=== PATIENT | male | born 1955 | race Caucasian/White ===

== ENCOUNTER 2020-08-26 10:32 | Outpatient (REF) | payer MEDICARE, SELFPAY ==
[2020-08-26 14:43] LABS: Alanine Aminotransferase 37 U/L (0-40); Albumin Level 4.2 g/dL (3.5-5.0); Alkaline Phosphatase 53 U/L (39-117); Anion Gap 14 (12-20); Aspartate Amino Transferase 29 U/L (5-37); Bilirubin Total 0.6 mg/dL (0.0-1.0); Blood Urea Nitrogen 15 mg/dL (9-16); Calcium 8.9 mg/dL (8.4-10.2); Carbon Dioxide 26 mmol/L (22-29); Chloride 104 mmol/L (96-108); Cholesterol 150 mg/dL; Estimated Glomerular Filt Rate > 60; Glucose Fasting 93 mg/dL (60-99); HDL Cholesterol 62 mg/dL; LDL Cholesterol Calculated 77 mg/dl; Potassium 4.4 mmol/L (3.3-5.1); Sodium 140 mmol/L (135-145); Total Protein 6.8 g/dL (6.5-8.0); Triglycerides 59 mg/dL
[2020-08-26 14:52] LABS: Prostate Specific Antigen Scr < 0.05 ng/mL (<0.05-4.0); TSH reflex Free T4 0.51 uIU/mL (0.32-4.0)
== END 2020-08-26 10:33 | disposition home or self-care (01) ==
LOC: HO.HMGCLDS 10:32
PROVIDERS: PCP Nurse Practitioner Family; Visit Provider Nurse Practitioner Family
DX: I21.9 Acute myocardial infarction, unspecified (principal); Z12.5 Encounter for screening for malignant neoplasm of prostate
CPT/HCPCS: 36415; 80053; 80061; 84153; 84443

== ENCOUNTER 2021-07-14 09:58 | Outpatient (REF) | payer MEDICARE, SELFPAY ==
[2021-07-14 11:48] LABS: Hematocrit 44.7 % (42.0-52.0); Mean Corpuscular HGB Conc 31.3 g/dl (31.0-36.0); Mean Corpuscular Hemoglobin 28.9 pg (27.0-33.0); Mean Corpuscular Volume 92.2 fL (80.0-98.0); Mean Platelet Volume 9.1 fL (9.4-12.4); Platelet Count 227 X10*3/uL (160-400); Red Blood Count 4.85 X10*6/uL (4.60-5.80); Red Cell Distribution Width 14.6 % (11.0-16.0)
[2021-07-14 12:21] LABS: Alanine Aminotransferase 23 U/L (0-40); Albumin Level 4.1 g/dL (3.5-5.0); Alkaline Phosphatase 52 U/L (39-117); Anion Gap 11 (12-20); Aspartate Amino Transferase 24 U/L (5-37); Bilirubin Total 0.4 mg/dL (0.0-1.0); Blood Urea Nitrogen 10 mg/dL (9-16); Calcium 9.5 mg/dL (8.4-10.2); Carbon Dioxide 32 mmol/L (22-29); Chloride 102 mmol/L (96-108); Cholesterol 114 mg/dL; Estimated Glomerular Filt Rate > 60; Glucose Fasting 100 mg/dL (60-99); HDL Cholesterol 52 mg/dL; LDL Cholesterol Calculated 52 mg/dl; Potassium 4.5 mmol/L (3.3-5.1); Sodium 140 mmol/L (135-145); Total Protein 6.8 g/dL (6.5-8.0); Triglycerides 53 mg/dL
[2021-07-14 12:45] LABS: Prostate Specific Antigen Scr < 0.05 ng/mL (<0.05-4.0); TSH reflex Free T4 0.61 uIU/mL (0.32-4.0)
[2021-07-14 12:54] LABS: Appearance Urine CLOUDY; Color Urine YELLOW; Glucose Urine UA NEG (NEG); Leukocyte Esterase Urine NEG (NEG); Nitrite Urine NEG (NEG); Urine Blood NEG (NEG); Urine Ketones NEG (NEG); Urine Protein TRACE MG/DL (NEG-TRACE)
== END 2021-07-14 09:59 | disposition home or self-care (01) ==
LOC: HO.LAB 09:58
PROVIDERS: PCP Nurse Practitioner Family; Referring Provider Nurse Practitioner Family; Visit Provider Nurse Practitioner Family
DX: Z01.818 Encounter for other preprocedural examination (principal); Z12.5 Encounter for screening for malignant neoplasm of prostate; K21.9 Gastro-esophageal reflux disease without esophagitis
CPT/HCPCS: 36415; 80053; 80061; 81003; 84153; 84443; 85027; 99202

== ENCOUNTER 2021-10-02 07:32 | Day surgery (SDC) | payer MEDICARE, SELFPAY ==
[2021-08-07 11:59] VITALS: BMI 24.9
--- NOTE | 2021-10-01 08:56 | P.CONAN_ITS ---
Documented by User: Eva Osborn NP 10/01/21 08:56 HPI - Anesthesia Eval Consult details Narrative: 66yo M for Colonoscopy PMFSH Active Problems Active Problems: All Active Problems (Updated 08/07/21 @ 11:52 by Mikki Wells RN) Screening PSA (prostate specific antigen) (Acute) Screening for colon cancer (Acute) Physical exam (Acute) Myocardial infarction (Acute) Past Medical History Medical History CAD (coronary artery disease) GERD (gastroesophageal reflux disease) History of prostate cancer Hyperlipidemia Myocardial infarction On beta oliva at home Surgical History Surgical History History of colonoscopy with polypectomy History of heart artery stent History of prostatectomy Social History Social History Housing: House Are you a primary hospice care consultant to a significant other at home: No Do you presently have visiting nurse or other home services: No Patient Tobacco Use Status: Former Tobacco user Quit Date: 1995 Tobacco use type: Cigarette Years Smoked: quit 1995 e-Cigarette/Vaping Use: Never Used Second Hand Smoke Exposure: No Use of substances other than those prescribed or required for medical reasons: No Substance Use Type Other:: Daily Beer- 5/6 Have you been hit, kicked, punched, or otherwise hurt by someone within the past year? If so, by whom?: No Are you DNR?: No Advance Directives: No Advance Directives Information Provided: No Advance Directives on File: No Recently lost weight without trying: No Eating poorly because of decreased appetite: No Nutrition Risks: No Nutritional Risk service: No Current occupational status: unemployed Meds Allergies Allergy/AdvReac Type Severity Reaction Status Date / Time amoxicillin Allergy Mild Abdominal Verified 08/07/21 12:05 Pain caffeine Allergy Hives Verified 08/07/21 12:05 hornet venom Allergy Anaphylaxis Verified 08/07/21 12:05 Penicillins Allergy Agitated Verified 08/07/21 12:05 Home Medications Medication Instructions Recorded Confirmed Last Taken Type aspirin 81 mg tablet,delayed 81 mg PO DAILY 08/25/20 08/07/21 09/30/21 History release atorvastatin 80 mg tablet 80 mg PO DAILY 08/25/20 08/07/21 Unknown History docusate sodium 100 mg tablet 100 mg PO BID 08/25/20 08/07/21 Unknown History metoprolol tartrate 25 mg tablet 12.5 mg PO BID 08/25/20 08/07/21 Unknown History multivitamin 1 tab PO DAILY 08/25/20 08/07/21 Unknown History psyllium husk 0.4 gram capsule 0.4 g PO DAILY 07/14/21 08/07/21 Unknown History (Fiber (psyllium husk)) Exam Exam Date and Time: October 01, 2021 0856 Height,Weight and Vital Signs: Height 5 ft 9.5 in Weight 77.564 kg Documented by User: Natalia Nobles MD 10/02/21 08:27 [facility] Past Medical History Medical History CAD (coronary artery disease) GERD (gastroesophageal reflux disease) History of prostate cancer Hyperlipidemia Myocardial infarction On beta oliva at home Surgical History Surgical History History of colonoscopy with polypectomy History of heart artery stent History of prostatectomy History of Problems with Anesthesia: No Social History Social History Housing: House Are you a primary hospice care consultant to a significant other at home: No Do you presently have visiting nurse or other home services: No Patient Tobacco Use Status: Former Tobacco user Quit Date: 1995 Tobacco use type: Cigarette Years Smoked: quit 1995 e-Cigarette/Vaping Use: Never Used Second Hand Smoke Exposure: No Use of substances other than those prescribed or required for medical reasons: No Substance Use Type Other:: Daily Beer- 5/6 Have you been hit, kicked, punched, or otherwise hurt by someone within the past year? If so, by whom?: No Are you DNR?: No Advance Directives: No Advance Directives Information Provided: No Advance Directives on File: No Recently lost weight without trying: No Eating poorly because of decreased appetite: No Nutrition Risks: No Nutritional Risk service: No Current occupational status: unemployed Meds Allergies Allergy/AdvReac Type Severity Reaction Status Date / Time amoxicillin Allergy Mild Abdominal Verified 08/07/21 12:05 Pain caffeine Allergy Hives Verified 08/07/21 12:05 hornet venom Allergy Anaphylaxis Verified 08/07/21 12:05 Penicillins Allergy Agitated Verified 08/07/21 12:05 Home Medications Medication Instructions Recorded Confirmed Last Taken Type aspirin 81 mg tablet,delayed 81 mg PO DAILY 08/25/20 08/07/21 09/30/21 History release atorvastatin 80 mg tablet 80 mg PO DAILY 08/25/20 08/07/21 Unknown History docusate sodium 100 mg tablet 100 mg PO BID 08/25/20 08/07/21 Unknown History metoprolol tartrate 25 mg tablet 12.5 mg PO BID 08/25/20 08/07/21 Unknown History multivitamin 1 tab PO DAILY 08/25/20 08/07/21 Unknown History psyllium husk 0.4 gram capsule 0.4 g PO DAILY 07/14/21 08/07/21 Unknown History (Fiber (psyllium husk)) Exam Airway Mallampati Class: II TM Dist: >3cm Neck ROM: Full Loose/Missing/Broken Teeth: No Heart: RRR Lungs: CTA Assessment and Plan Assessment Anesthesia Assessment: Anesthesia Plan Discussed and Chart Reviewed Final Anesthetic Review History of Problems with Anesthesia: No NPO: Yes ASA Class: III Final Preanesthetic Review: Meds/Allgs Chart Reviewed, Consent Obtained/Reviewed and Anes Risks/Benef Reviewed Patient Risk: Intermediate Procedure Risk: Low Anesthetic Plan Anesthetic Plan: MAC: Disposition: Standard PACU
[2021-10-02 07:52] VITALS: BP 121/70; PULSE 75; RESP 16; TEMP 36.2; O2SAT 99
[2021-10-02] MEDS: Lactated Ringers 1,000 ML 50 ML IVCONT (07:58)
--- NOTE | 2021-10-02 08:28 | MHC.SHP ---
Pre-Procedural Eval Section A Date of Service: 10/02/21 Section B Chief Complaint: screening Relevant Family History (Specify if Yes): No Relevant Social History: Alcohol Use Present Medications: see Short Stay Collaborative assessment Medical History: Significant History (CAD (coronary artery disease) GERD (gastroesophageal reflux disease) History of prostate cancer Hyperlipidemia Myocardial infarction On beta oliva at home) History of Previous Operations: Relevant previous surgery/procedure and date(s) (History of colonoscopy with polypectomy History of heart artery stent History of prostatectomy) Allergies: Allergies Allergy/AdvReac Type Severity Reaction Status Date / Time amoxicillin Allergy Mild Abdominal Verified 08/07/21 12:05 Pain caffeine Allergy Hives Verified 08/07/21 12:05 hornet venom Allergy Anaphylaxis Verified 08/07/21 12:05 Penicillins Allergy Agitated Verified 08/07/21 12:05 Review of Systems Sugical H&P ROS: Negative: Constitution, Cardiovascular, Respiratory, Neurological, Psychiatric, Hem-Onc, Allergic/Immunologic, Gastrointestinal, Genitourinary, Musculoskeletal, Integumentary, Endocrine and Eyes/Ears/Nose/Throat Exam Surgical H&P Exam: Normal: HEENT, Normal: Heart, Normal: Lungs, Normal: Extremities, Normal: Abdomen, Normal: Skin and Normal: Neurological Plan Diagnosis/Plan: Unchanged I have reviewed the history and physical and performed a pertinent physical examination on my patient. No changes have occurred unless specified.
--- NOTE | 2021-10-02 08:29 | PM.OP ---
Brief Operative Note Date of Service: 10/02/21 Pre-op diagnosis: screening, hx of polyps Post-op diagnosis: same Procedure: see op note Surgeon: Misti Rock MD Anesthesia: MAC Was an Director Community Organization used for this Procedure?: No Estimated blood loss (mL): 0 Condition: stable Disposition: PACU
--- NOTE | 2021-10-02 08:30 | W.PM.OPN ---
Operative Note Operative Note Date of Service: 10/02/21 Narrative: Operative Information Procedure Description: Colonoscopy Indication: screening, hx of polyps Anesthesia: MAC COLONOSCOPY Instrument: Olympus variable stiffness pediatric scope 190L Colonoscopy Monitoring: Vital signs and clinical assessment, continuous EKG monitoring, Pulse oximetry, Carbon Dioxide monitoring and blood pressure monitoring were done throughout the procedure. Colon withdrawal time was 13 minutes. Procedure: The patient was placed in the left lateral decubitis position and pre-procedure medications were administered. After a digital rectal examination of the ano-rectum, the video colonoscope was inserted into the rectum and advanced through the colon to the cecum/TI. The colonoscope was slowly withdrawn in a retrograde panoramic fashion and the colon mucosa was carefully examined including a retroflexed view of the rectum. Findings and interventions are described below. Procedure Difficulty: easy Findings: Terminal Ileum-not intubated Cecum:normal Ascending Colon: x1 sessile polyp 4-5 mm removed with cold forceps, x 2 sessile polyps 8-10 mm removed with cold snare Transverse Colon -normal, few diverticula seen Descending Colon:normal Sigmoid Colon: severe diverticulosis with mucosal hypertrophy and luminal narrowing Rectum: Retroflexion with moderate sized internal hemorrhoids, grade I Anorectum - normal Colon preparation: [place] Bowel Preparation Scale Right colon; 2 Transverse colon: 2 Left colon; 2 (0 = Unprepared colon segment with mucosa not seen due to solid stool that cannot be cleared. 1 = Portion of mucosa of the colon segment seen, but other areas of the colon segment not well seen due to staining, residual stool and/or opaque liquid. 2 = Minor amount of residual staining, small fragments of stool and/or opaque liquid, but mucosa of colon segment seen well. 3 = Entire mucosa of colon segment seen well with no residual staining, small fragments of stool or opaque liquid) Impression and Post Procedure Diagnosis: polyps internal hemorrhoids diverticular disease Plan: High fiber diet leaflet Avoid straining at stool, epsom salts and sitz bath, anusol supps or cream Repeat Colonoscopy in 3-4 years due to polyps or earlier if clinically indicated Above findings were reviewed with the patient and relevant handouts were provided if indicated.
[2021-10-02 09:05] VITALS: BP 91/51; PULSE 65; RESP 14; TEMP 36.6; O2SAT 98
[2021-10-02 09:20] VITALS: BP 109/64; PULSE 66; RESP 18; TEMP 36.1; O2SAT 99
== END 2021-10-02 09:57 | disposition home or self-care (01) ==
PROVIDERS: PCP Nurse Practitioner Family; Visit Provider Internal Medicine Gastroenterology
PROC: 0DJD8ZZ Inspection of Lower Intestinal Tract, Via Natural or Artificial Opening Endoscopic (ICD-10-PCS; CPT 45378; principal; 2021-10-02 08:30)
DX: Z12.11 Encounter for screening for malignant neoplasm of colon (principal); Z86.010 Personal history of colon polyps; D12.2 Benign neoplasm of ascending colon; K57.30 Diverticulosis of large intestine without perforation or abscess without bleeding; K64.0 First degree hemorrhoids; K21.9 Gastro-esophageal reflux disease without esophagitis; I25.10 Atherosclerotic heart disease of native coronary artery without angina pectoris; I25.2 Old myocardial infarction; Z98.61 Coronary angioplasty status; E78.5 Hyperlipidemia, unspecified; Z79.82 Long term (current) use of aspirin; Z79.899 Other long term (current) drug therapy; Z88.0 Allergy status to penicillin; Z85.46 Personal history of malignant neoplasm of prostate; Z87.891 Personal history of nicotine dependence
CPT/HCPCS: 45385; 45380; 88305

== ENCOUNTER → 2021-11-03 12:16 | Outpatient (BNVA) | payer MEDICARE, SELFPAY | PROVIDERS: PCP Nurse Practitioner Family; Visit Provider Nurse Practitioner Family | DX: D12.2 Benign neoplasm of ascending colon (principal); K57.30 Diverticulosis of large intestine without perforation or abscess without bleeding; Z98.890 Other specified postprocedural states | CPT/HCPCS: 99212 ==

== ENCOUNTER 2022-04-30 11:52 | Outpatient (REF) | payer MEDICARE, SELFPAY ==
[2022-04-30 14:11] LABS: MANUAL DIFF FLAG NO
[2022-04-30 14:18] LABS: Basophils Absolute Auto 0.1 X10*3/uL (0.0-0.2); Basophils Percent Auto 0.5 % (0-2); Eosinophils Absolute Auto 0.2 X10*3/uL (0.0-0.4); Eosinophils Percent Auto 1.5 % (0-4); Hematocrit 45.5 % (42.0-52.0); Hemoglobin 14.6 g/dl (14.0-18.0); Imm Gran Abs Auto 0.03 X10*3/uL (0.00-0.03); Imm Gran Pct Auto 0.3 % (0.0-0.4); Lymphocytes Absolute Auto 3.5 X10*3/uL (1.2-4.9); Mean Corpuscular HGB Conc 32.1 g/dl (31.0-36.0); Mean Corpuscular Hemoglobin 28.9 pg (27.0-33.0); Mean Corpuscular Volume 90.1 fL (80.0-98.0); Mean Platelet Volume 9.4 fL (9.4-12.4); Monocytes Absolute Auto 0.7 X10*3/uL (0.1-1.2); Monocytes Percent Auto 5.9 % (2-11); Neutrophils Absolute Auto 6.6 x10*3/uL (2.0-8.3); Neutrophils Percent Auto 59.8 % (45-73); Platelet Count 245 X10*3/uL (160-400); Red Blood Count 5.05 X10*6/uL (4.60-5.80); Red Cell Distribution Width 14.7 % (11.0-16.0)
[2022-04-30 15:08] LABS: Alanine Aminotransferase 21 U/L (0-40); Albumin Level 4.2 g/dL (3.5-5.0); Alkaline Phosphatase 61 U/L (39-117); Anion Gap 13 (12-20); Aspartate Amino Transferase 24 U/L (5-37); Bilirubin Total 0.5 mg/dL (0.0-1.0); Blood Urea Nitrogen 11 mg/dL (9-16); Calcium 9.6 mg/dL (8.4-10.2); Carbon Dioxide 28 mmol/L (22-29); Chloride 104 mmol/L (96-108); Cholesterol 133 mg/dL; Estimated Glomerular Filt Rate > 60; Glucose Fasting 90 mg/dL (60-99); HDL Cholesterol 56 mg/dL; LDL Cholesterol Calculated 65 mg/dl; Prostate Specific Antigen Scr < 0.10 ng/mL (<0.05-4.0); Sodium 140 mmol/L (135-145); TSH reflex Free T4 0.66 uIU/mL (0.32-4.0); Total Protein 6.8 g/dL (6.5-8.0); Triglycerides 62 mg/dL
[2022-04-30 16:27] LABS: Appearance Urine Clear; Color Urine Yellow; Glucose Urine UA Negative (Negative); Leukocyte Esterase Urine Negative (Negative); Nitrite Urine Negative (Negative); Specific Gravity - Urine 1.015 (1.005-1.025); Urine Blood Negative (Negative); Urine Ketones Negative (Negative); Urine Protein Negative (Neg-Trace)
== END 2022-04-30 11:53 | disposition home or self-care (01) ==
LOC: HO.HMGCLDS 11:52
PROVIDERS: PCP Nurse Practitioner Family; Visit Provider Nurse Practitioner Family
DX: Z00.00 Encounter for general adult medical examination without abnormal findings (principal); Z12.5 Encounter for screening for malignant neoplasm of prostate
CPT/HCPCS: 36415; 80053; 80061; 81003; 84153; 84443; 85025

== ENCOUNTER 2022-07-26 15:14 | Outpatient (REF) | payer MEDICARE, SELFPAY ==
[2022-07-26 16:18] LABS: MANUAL DIFF FLAG NO
[2022-07-26 16:21] LABS: Basophils Absolute Auto 0.1 X10*3/uL (0.0-0.2); Basophils Percent Auto 0.5 % (0-2); Eosinophils Absolute Auto 0.1 X10*3/uL (0.0-0.4); Hematocrit 45.8 % (42.0-52.0); Hemoglobin 14.8 g/dl (14.0-18.0); Imm Gran Abs Auto 0.04 X10*3/uL (0.00-0.03); Imm Gran Pct Auto 0.3 % (0.0-0.4); Lymphocytes Absolute Auto 3.3 X10*3/uL (1.2-4.9); Lymphocytes Percent Auto 24.9 % (20-40); Mean Corpuscular HGB Conc 32.3 g/dl (31.0-36.0); Mean Corpuscular Hemoglobin 29.2 pg (27.0-33.0); Mean Corpuscular Volume 90.5 fL (80.0-98.0); Mean Platelet Volume 8.9 fL (9.4-12.4); Monocytes Absolute Auto 0.6 X10*3/uL (0.1-1.2); Monocytes Percent Auto 4.9 % (2-11); Neutrophils Percent Auto 68.4 % (45-73); Platelet Count 222 X10*3/uL (160-400); Red Blood Count 5.06 X10*6/uL (4.60-5.80); Red Cell Distribution Width 14.6 % (11.0-16.0); White Blood Count 13.1 X10*3/uL (4.8-10.8)
[2022-07-26 17:40] LABS: Alanine Aminotransferase 21 U/L (0-40); Albumin Level 4.2 g/dL (3.5-5.0); Alkaline Phosphatase 58 U/L (39-117); Anion Gap 13 (12-20); Aspartate Amino Transferase 22 U/L (5-37); Bilirubin Total 0.4 mg/dL (0.0-1.0); Blood Urea Nitrogen 12 mg/dL (9-16); Calcium 9.3 mg/dL (8.4-10.2); Carbon Dioxide 29 mmol/L (22-29); Chloride 103 mmol/L (96-108); Estimated Glomerular Filt Rate > 60; Glucose Random 72 mg/dL (60-115); Potassium 4.6 mmol/L (3.3-5.1); Sodium 140 mmol/L (135-145); Total Protein 6.7 g/dL (6.5-8.0)
[2022-07-26 18:01] LABS: Prostate Specific Antigen < 0.10 ng/mL (<0.05-4.0)
== END 2022-07-26 15:15 | disposition home or self-care (01) ==
LOC: HO.HMGCLDS 15:14
PROVIDERS: PCP Nurse Practitioner Family; Visit Provider Nurse Practitioner Family
DX: Z12.5 Encounter for screening for malignant neoplasm of prostate (principal); D72.829 Elevated white blood cell count, unspecified; R97.20 Elevated prostate specific antigen [PSA]
CPT/HCPCS: 36415; 80053; 84153; 85025

== ENCOUNTER 2022-08-27 13:58 | Outpatient (REF) | payer MEDICARE, SELFPAY ==
[2022-08-27 16:26] LABS: MANUAL DIFF FLAG NO
[2022-08-27 16:36] LABS: Basophils Absolute Auto 0.1 X10*3/uL (0.0-0.2); Basophils Percent Auto 0.5 % (0-2); Eosinophils Absolute Auto 0.2 X10*3/uL (0.0-0.4); Eosinophils Percent Auto 1.3 % (0-4); Hematocrit 43.8 % (42.0-52.0); Imm Gran Abs Auto 0.04 X10*3/uL (0.00-0.03); Imm Gran Pct Auto 0.3 % (0.0-0.4); Immature Retic Fraction 14.7 % (2.3-13.4); Lymphocytes Absolute Auto 4.1 X10*3/uL (1.2-4.9); Lymphocytes Percent Auto 34.8 % (20-40); Mean Corpuscular Hemoglobin 29.1 pg (27.0-33.0); Mean Corpuscular Volume 91.1 fL (80.0-98.0); Mean Platelet Volume 9.4 fL (9.4-12.4); Monocytes Absolute Auto 0.8 X10*3/uL (0.1-1.2); Monocytes Percent Auto 6.5 % (2-11); Neutrophils Absolute Auto 6.6 x10*3/uL (2.0-8.3); Neutrophils Percent Auto 56.6 % (45-73); Platelet Count 224 X10*3/uL (160-400); RET ABN SCTR 1; Red Blood Count 4.81 X10*6/uL (4.60-5.80); Retic HGB Equivalent 33.5 pg (30.0-35.0); Reticulocytes Absolute 0.081 X10*6/uL (0.026-0.095); White Blood Count 11.7 X10*3/uL (4.8-10.8)
[2022-08-27 17:16] LABS: Reticulocyte Percent 1.7 % (0.5-1.8)
== END 2022-08-27 13:59 | disposition home or self-care (01) ==
LOC: HO.HMGCLDS 13:58
PROVIDERS: PCP Nurse Practitioner Family; Visit Provider Nurse Practitioner Family
DX: D72.829 Elevated white blood cell count, unspecified (principal)
CPT/HCPCS: 36415; 85025; 85045

== ENCOUNTER 2022-09-22 14:31 | Outpatient (REF) | payer MEDICARE, SELFPAY ==
[2022-09-22 16:56] LABS: MANUAL DIFF FLAG NO
[2022-09-22 17:30] LABS: Basophils Absolute Auto 0.1 X10*3/uL (0.0-0.2); Basophils Percent Auto 0.5 % (0-2); Eosinophils Absolute Auto 0.1 X10*3/uL (0.0-0.4); Eosinophils Percent Auto 0.7 % (0-4); Hematocrit 45.3 % (42.0-52.0); Hemoglobin 14.7 g/dl (14.0-18.0); Imm Gran Abs Auto 0.03 X10*3/uL (0.00-0.03); Imm Gran Pct Auto 0.3 % (0.0-0.4); Immature Retic Fraction 14.6 % (2.3-13.4); Lymphocytes Absolute Auto 2.4 X10*3/uL (1.2-4.9); Lymphocytes Percent Auto 23.1 % (20-40); Mean Corpuscular HGB Conc 32.5 g/dl (31.0-36.0); Mean Corpuscular Hemoglobin 28.5 pg (27.0-33.0); Mean Corpuscular Volume 87.8 fL (80.0-98.0); Mean Platelet Volume 9.2 fL (9.4-12.4); Monocytes Absolute Auto 0.6 X10*3/uL (0.1-1.2); Monocytes Percent Auto 5.4 % (2-11); Neutrophils Absolute Auto 7.4 x10*3/uL (2.0-8.3); Platelet Count 248 X10*3/uL (160-400); Red Blood Count 5.16 X10*6/uL (4.60-5.80); Red Cell Distribution Width 14.4 % (11.0-16.0); Retic HGB Equivalent 33.4 pg (30.0-35.0); Reticulocyte Percent 1.4 % (0.5-1.8); Reticulocytes Absolute 0.074 X10*6/uL (0.026-0.095); White Blood Count 10.5 X10*3/uL (4.8-10.8)
== END 2022-09-22 14:32 | disposition home or self-care (01) ==
LOC: HO.HMGCLDS 14:31
PROVIDERS: PCP Nurse Practitioner Family; Visit Provider Nurse Practitioner Family
DX: D72.829 Elevated white blood cell count, unspecified (principal)
CPT/HCPCS: 36415; 85025; 85045

== ENCOUNTER 2023-05-07 10:19 | Outpatient (REF) | payer MEDICARE, SELFPAY ==
[2023-05-07 11:06] LABS: MANUAL DIFF FLAG NO
[2023-05-07 11:10] LABS: Appearance Urine Clear; Color Urine Yellow; Glucose Urine UA Negative (Negative); Leukocyte Esterase Urine Negative (Negative); Nitrite Urine Negative (Negative); Urine Blood Negative (Negative); Urine Ketones Negative (Negative); Urine Protein Negative (Neg-Trace)
[2023-05-07 11:18] LABS: Basophils Absolute Auto 0.1 X10*3/uL (0.0-0.2); Basophils Percent Auto 0.5 % (0-2); Eosinophils Absolute Auto 0.2 X10*3/uL (0.0-0.4); Eosinophils Percent Auto 2.1 % (0-4); Hematocrit 45.6 % (42.0-52.0); Hemoglobin 14.5 g/dl (14.0-18.0); Imm Gran Abs Auto 0.03 X10*3/uL (0.00-0.03); Imm Gran Pct Auto 0.3 % (0.0-0.4); Immature Retic Fraction 14.5 % (2.3-13.4); Lymphocytes Absolute Auto 3.1 X10*3/uL (1.2-4.9); Lymphocytes Percent Auto 33.3 % (20-40); Mean Corpuscular HGB Conc 31.8 g/dl (31.0-36.0); Mean Corpuscular Hemoglobin 28.8 pg (27.0-33.0); Mean Corpuscular Volume 90.7 fL (80.0-98.0); Mean Platelet Volume 9.1 fL (9.4-12.4); Monocytes Absolute Auto 0.7 X10*3/uL (0.1-1.2); Monocytes Percent Auto 7.3 % (2-11); Neutrophils Absolute Auto 5.3 x10*3/uL (2.0-8.3); Neutrophils Percent Auto 56.5 % (45-73); Platelet Count 213 X10*3/uL (160-400); Red Blood Count 5.03 X10*6/uL (4.60-5.80); Retic HGB Equivalent 33.7 pg (30.0-35.0); Reticulocyte Percent 1.6 % (0.5-1.8); Reticulocytes Absolute 0.083 X10*6/uL (0.026-0.095); White Blood Count 9.4 X10*3/uL (4.8-10.8)
[2023-05-07 11:50] LABS: Alanine Aminotransferase 30 U/L (0-40); Albumin Level 4.1 g/dL (3.5-5.0); Alkaline Phosphatase 58 U/L (39-117); Anion Gap 11 (12-20); Aspartate Amino Transferase 25 U/L (5-37); Bilirubin Total 0.5 mg/dL (0.0-1.0); Blood Urea Nitrogen 15 mg/dL (9-16); Calcium 9.2 mg/dL (8.4-10.2); Carbon Dioxide 29 mmol/L (22-29); Chloride 103 mmol/L (96-108); Cholesterol 141 mg/dL (<200); Estimated Glomerular Filt Rate > 60; Glucose Fasting 100 mg/dL (60-99); HDL Cholesterol 59 mg/dL (>40); LDL Cholesterol Calculated 63 mg/dL (<100); Potassium 4.3 mmol/L (3.3-5.1); Sodium 139 mmol/L (135-145); Total Protein 6.9 g/dL (6.5-8.0); Triglycerides 99 mg/dL (<150)
== END 2023-05-07 10:20 | disposition home or self-care (01) ==
LOC: HO.HMGCLDS 10:19
PROVIDERS: PCP Nurse Practitioner Family; Visit Provider Nurse Practitioner Family
DX: D72.829 Elevated white blood cell count, unspecified (principal); I25.10 Atherosclerotic heart disease of native coronary artery without angina pectoris
CPT/HCPCS: 36415; 80053; 80061; 81003; 85025; 85045

== ENCOUNTER 2023-05-12 10:48 | Outpatient (AMB) | payer MEDICARE, SELFPAY ==
--- NOTE | 2023-05-12 11:03 | MHC.PC.OV ---
Vital Signs 05/12/23 11:05 Height 5 ft 9.5 in Weight 182 lb BMI 26.5 BP 118/85 Blood Pressure Location Lt brachial Position Sitting Pulse 69 Pulse Source Pulse Oximeter Pulse Oximetry (%) 97 Oxygen Delivery Method Room Air Intake Visit Reasons: Annual PE Intake Note: Patient here for physical exam. Patient would like to talk about circulation in toes and knee pain. Last colonoscopy: [facility] [place]-September 2021 Allergies amoxicillin Allergy (Mild, Verified 11/02/22 11:40) Abdominal Pain caffeine Allergy (Verified 11/02/22 11:40) Hives hornet venom Allergy (Verified 11/02/22 11:40) Anaphylaxis Penicillins Allergy (Verified 11/02/22 11:40) Agitated Medication List - Last Reconciled 05/12/23 by YAMILE Ingram aspirin 81 mg PO DAILY atorvastatin 80 mg PO DAILY cholecalciferol (vitamin D3) 25 mcg PO DAILY metoprolol tartrate 12.5 mg PO BID multivitamin 1 tab PO DAILY Tobacco use date assessed: 05/12/23 Fall risk assessment: No Falls in past year Last assessed Fall Risk: 05/12/23 Dental Screening Dental Screen Date: 05/12/23 Did you have a dental visit in the last 12 months?: Yes Did you have a dental problem in the last 6 months where you did not have access to dental care?: No Was dental information given to patient?: Patient has dentist HPI Annual PE HPI Details Pt is here for a PE. Labs were already performed. Colon screen is up to date. Pt's last PSA was <0.10 which was increased from <0.05. He does have a hx of prostatectomy. Will repeat PSA. Will also reach out to pt's urologist. Denies dribbling with urination, weak stream, and frequent nocturia. Pt follows up with cardiology. [facility] Medical History Tubular adenoma On beta oliva at home History of prostate cancer GERD (gastroesophageal reflux disease) Hyperlipidemia CAD (coronary artery disease) Myocardial infarction Surgical History History of colonoscopy with polypectomy History of prostatectomy History of heart artery stent Social History Housing: House Are you a primary companion caregiver to a significant other at home: No Do you presently have visiting nurse or other home services: No Patient Tobacco Use Status: Former Tobacco user Quit Date: 1995 Tobacco use type: Cigarette Years Smoked: quit 1995 e-Cigarette/Vaping Use: Never Used Second Hand Smoke Exposure: No service: No Current occupational status: unemployed Cognitive needs: No Hearing needs: No Vision needs: No Questionnaire PHQ-9 Over the last 2 weeks, how often have you been bothered by any of the following problems? 1. Little interest or pleasure in doing things: not at all 2. Feeling down, depressed, or hopeless: not at all 3. Trouble falling or staying asleep, or sleeping too much: not at all 4. Feeling tired or having little energy: not at all 5. Poor appetite or overeating: not at all 6. Feeling bad about yourself - or that you are a failure or have let yourself or your family down: not at all 7. Trouble concentrating on things, such as reading the newspaper or watching television: not at all 8. Moving or speaking so slowly that other people could have noticed. Or the opposite - being so fidgety or restless that you have been moving around a lot more than usual: not at all 9. Thoughts that you would be better off or of hurting yourself in some way: not at all Total score: 0 Depression Screening Interpretation: Negative Depression Screening Done: Yes 58884 - PHQ-9 Billing: Yes Source: Developed by Drs. Mumtaz Lyman, Shaniqua Mireles, Luis Morales and colleagues, with an educational cindy from [employer]. Thrive Questionnaire Date Thrive assessed: 05/12/23 I am a: Patient What is your living situation today?: I have a steady place to live Within the past 12 months, did the food you bought not last and you didn't have the money to get more?: Never true Within the past 12 months, did you worry whether your food would run out before you got money to buy more?: Never true Do you have trouble paying for medicines?: No Do you have trouble getting transportation to medical appointments?: No Do you have trouble paying your heating and electricity bill?: No Do you have trouble taking care of your child, family member or friend?: No Do you have trouble with day-to-day activities such as bathing, preparing meals, shopping, managing finances, etc.?: No Are you currently unemployed and looking for a job?: No Are you interested in more education?: No AUDIT C Alcohol Use Questionnaire (AUDIT-C) 1. How often do you have a drink containing alcohol?: 4 or more times a week 2. How many drinks containing alcohol do you have on a typical day when you are drinking?: 7 to 9 3. How often do you have six or more drinks on one occasion?: Daily or almost daily Total Score: 11 Score Reviewed/Action Taken: Yes ELSA-7 AMB Questionnaire ELSA-7 Date ELSA - 7 assessed: 05/12/23 Feeling nervous, anxious, or on edge: 0 = Not at all Not being able to stop or control worryin = Not at all Worrying too much about different things: 0 = Not at all Trouble relaxin = Not at all Being so restless that it is hard to sit still: 0 = Not at all Becoming easily annoyed or irritable: 0 = Not at all Feeling afraid as if something awful might happen: 0 = Not at all Total ELSA-7 score (0-4 normal; 5-9 mild; 10-14 moderate; 15-21 severe): 0 Source: Developed by Drs. Mumtaz Lyman, Shaniqua Mireles, Luis Morales and colleagues, with an educational cindy from [employer]. ELSA-7 Assessment Billing ELSA-7 Assessment Tool: ELSA-7 Assessment 41441 Review of Systems Const Denies chills and Denies fever(s) Eyes Denies blurry vision ENT Denies vertigo, Denies dizziness and Denies sore throat Card Denies chest pain at rest, Denies chest pain with activity, Denies diaphoresis, Denies dyspnea and Denies dyspnea on exertion Resp Denies cough, Denies dyspnea, Denies dyspnea on exertion and Denies wheezing GI Denies abdominal pain, Denies melena, Denies hematochezia, Denies constipation, Denies diarrhea and Denies loose stools Denies hematuria Musc Denies numbness and Denies tingling Skin/Breast Denies lesions Neuro Denies vertigo, Denies dizziness, Denies numbness and Denies tingling Psych Denies anxiety, Denies depression, Denies homicidal ideation, Denies suicidal ideation and Denies other (substance abuse) Aller/Immun Denies wheezing Physical exam (Primary Care) Vital Signs: Last Vital Signs Pulse 69 05/12/23 11:05 BP 118/85 05/12/23 11:05 Pulse Ox 97 05/12/23 11:05 Oxygen Delivery Method Room Air 05/12/23 11:05 BMI result Body Mass Index 26.5 Tobacco/Smoking Status: Tobacco use Status Tobacco use date assessed 05/12/23 05/12/23 11:11 Patient Tobacco Use Status Former Tobacco user 05/12/23 11:05 Tobacco use type Cigarette 05/12/23 11:05 e-Cigarette/Vaping Use Never Used 05/12/23 11:05 PHQ-9: PHQ-9 Score PHQ-9: Total score 0 05/12/23 13:14 Depression Screening Interpretation: Negative Thrive Assessment: Date of Thrive Assessment Date Thrive assessed 05/12/23 05/12/23 11:16 Const General: cooperative Nutritional Appearance: well nourished Orientation/consciousness: patient oriented x3 HENMT Head: Yes normal to inspection, Yes normocephalic and Yes atraumatic Ears: TM's normal bilaterally Eyes General: appearance normal, both eyes and all related structures Alignment and Position: alignment normal and position normal Neck Neck: Yes normal visual inspection and Yes no lymphadenopathy Thyroid: Thyroid normal Resp Effort & Inspection: normal respiratory effort Auscultation: clear to auscultation bilaterally Cardio Rate: regular rate Rhythm: regular rhythm Heart sounds: S1 normal heart sound present, S2 normal heart sound present and no murmurs GI Palpation (GI): Soft to palpation and nontender Auscultation: normal bowel sounds Male General Exam: Yes normal external exam Penis: normal penis Scrotum: scrotum normal, testes descended bilaterally and no inguinal hernias Testes: no testicular mass Skin Rashes: no rashes Neuro General: patient oriented x3, moves all extremities, no focal motor deficits and deep tendon reflexes 2+ bilaterally Romberg Test: Negative Psych Appearance: grossly normal Mental Status: mental status grossly normal Speech and movement: Normal speech and movement present Affect: normal affect Attitude: cooperative Thought process: Normal thought process present Thought content: Normal thought content present Insight: Good insight present (Psych) Judgement: Good judgement present (Psych) Assessment and Plan Assessment & Plan (1) Rising PSA level: Code(s): R97.20 - Elevated prostate specific antigen [PSA] Plan: will contact his urologist, repeating psa (2) Physical exam: Code(s): Z00.00 - Encounter for general adult medical examination without abnormal findings Orders: Orders PSA,Total (Free>4and<10) Today R97.20 - Elevated prostate specific antigen [PSA] Coding Level of Care Code Est Pt Prev Care >65y(44328) Diagnoses Rising PSA level R97.20 Physical exam Z00.00 Additional Codes ELSA-7 Assessment Billing - ELSA-7 Assessment Tool: ELSA-7 Assessment 36538 ([id number])
[2023-05-12 11:05] VITALS: BP 118/85; PULSE 69; O2SAT 97; BMI 26.5
== END 2023-05-12 11:55 | disposition home or self-care (01) ==
PROVIDERS: PCP Nurse Practitioner Family; Visit Provider Nurse Practitioner Family
DX: R97.20 Elevated prostate specific antigen [PSA] (principal); Z00.00 Encounter for general adult medical examination without abnormal findings
CPT/HCPCS: 99397

== ENCOUNTER 2023-05-14 12:22 | Outpatient (REF) | payer MEDICARE, SELFPAY | END 2023-05-14 12:23 | disposition home or self-care (01) | LOC: HO.HMGCLDS 12:22 | PROVIDERS: PCP Nurse Practitioner Family; Visit Provider Nurse Practitioner Family | DX: R97.20 Elevated prostate specific antigen [PSA] (principal); Z12.5 Encounter for screening for malignant neoplasm of prostate | CPT/HCPCS: 36415; 84153 ==

== ENCOUNTER 2023-11-14 14:25 | Outpatient (AMB) | payer MEDICARE, SELFPAY ==
[2023-11-14 14:28] VITALS: BP 124/82; PULSE 74; O2SAT 96; BMI 25.9
--- NOTE | 2023-11-14 14:28 | MHC.PC.OV ---
Vital Signs 11/14/23 14:28 Height 5 ft 9.5 in Weight 178 lb 4 oz BMI 25.9 BP 124/82 Blood Pressure Location Lt brachial Position Sitting Pulse 74 Pulse Source Pulse Oximeter Pulse Oximetry (%) 96 Oxygen Delivery Method Room Air Intake Visit Reasons: 6 month Follow up Allergies amoxicillin Allergy (Mild, Verified 11/14/23 14:35) Abdominal Pain caffeine Allergy (Verified 11/14/23 14:35) Hives hornet venom Allergy (Verified 11/14/23 14:35) Anaphylaxis Penicillins Allergy (Verified 11/14/23 14:35) Agitated Tobacco use date assessed: 11/14/23 Fall risk assessment: No Falls in past year Last assessed Fall Risk: 11/14/23 Dental Screening Dental Screen Date: 11/14/23 Did you have a dental visit in the last 12 months?: Yes Did you have a dental problem in the last 6 months where you did not have access to dental care?: No Was dental information given to patient?: Patient has dentist HPI 6 month Follow up HPI Details Pt has a hx of CAD. He is seeing cardiology. He is also taking aspirin 81mg and atorvastatin 80mg. Denies chest pain, shortness of breath, and dizziness. Pt is following up with urology due to micro hematuria and hx of prostate cancer. Pt also follows up with cardiology [facility] Medical History Raynauds disease Tubular adenoma On beta oliva at home History of prostate cancer GERD (gastroesophageal reflux disease) Hyperlipidemia CAD (coronary artery disease) Myocardial infarction Surgical History History of colonoscopy with polypectomy History of prostatectomy History of heart artery stent Social History Housing: House Are you a primary assistant child care teacher to a significant other at home: No Do you presently have visiting nurse or other home services: No Patient Tobacco Use Status: Former Tobacco user Tobacco use type: Cigarette Years Smoked: quit 1995 e-Cigarette/Vaping Use: Never Used Second Hand Smoke Exposure: No service: No Current occupational status: unemployed Cognitive needs: No Hearing needs: No Vision needs: No Questionnaire Thrive Questionnaire Date Thrive assessed: 05/12/23 AUDIT C Alcohol Use Questionnaire (AUDIT-C) 1. How often do you have a drink containing alcohol?: 4 or more times a week 2. How many drinks containing alcohol do you have on a typical day when you are drinking?: 7 to 9 3. How often do you have six or more drinks on one occasion?: Daily or almost daily Total Score: 11 Score Reviewed/Action Taken: Yes ELSA-7 AMB Questionnaire ELSA-7 Date ELSA - 7 assessed: 05/12/23 Source: Developed by Drs. Mumtaz Lyman, Shaniqua Mireles, Luis Morales and colleagues, with an educational cindy from [employer]. Review of Systems Const Reports as per HPI Physical exam (Primary Care) Vital Signs: Last Vital Signs Pulse 74 11/14/23 14:28 BP 124/82 11/14/23 14:28 Pulse Ox 96 11/14/23 14:28 Oxygen Delivery Method Room Air 11/14/23 14:28 BMI result Body Mass Index 25.9 Tobacco/Smoking Status: Tobacco use Status Tobacco use date assessed 11/14/23 11/14/23 14:37 Patient Tobacco Use Status Former Tobacco user 11/14/23 14:31 Tobacco use type Cigarette 11/14/23 14:31 e-Cigarette/Vaping Use Never Used 11/14/23 14:31 Thrive Assessment: Date of Thrive Assessment Date Thrive assessed 05/12/23 11/14/23 14:31 Const General: cooperative Orientation/consciousness: patient oriented x3 Resp Auscultation: clear to auscultation bilaterally Cardio Rate: regular rate Rhythm: regular rhythm Heart sounds: S1 normal heart sound present and S2 normal heart sound present Neuro General: patient oriented x3 Extrem Right lower extremity: no edema Left lower extremity: no edema Psych Appearance: grossly normal Mental Status: mental status grossly normal Speech and movement: Normal speech and movement present Affect: normal affect Attitude: cooperative Thought process: Normal thought process present Thought content: Normal thought content present Insight: Good insight present (Psych) Judgement: Good judgement present (Psych) Assessment and Plan Assessment & Plan (1) CAD (coronary artery disease): Comment: sees cardiology Code(s): I25.10 - Atherosclerotic heart disease of [place] coronary artery without angina pectoris Plan: labs, on asa and statin 80mg. Plan The patient agreed to the use of a medical front desk coordinator for this encounter. Scribed for Jake Garcias, HEALTH CONSULTANT- by Vi Fang, medical front desk coordinator, on 11/14/2023 at 14:50 EST. Orders: Orders Complete Blood Count Auto Diff Today I25.10 - Atherosclerotic heart disease of [place] coronary artery without angina pectoris TSH reflex Free T4 Today I25.10 - Atherosclerotic heart disease of [place] coronary artery without angina pectoris UA CC w/rflx Micro + Cult Today I25.10 - Atherosclerotic heart disease of [place] coronary artery without angina pectoris Lipid Panel Today I25.10 - Atherosclerotic heart disease of [place] coronary artery without angina pectoris Comprehensive Brilli[facility]. Panel Fast Today I25.10 - Atherosclerotic heart disease of [place] coronary artery without angina pectoris Coding Level of Care Code Est Pt Level 3 (80580) Diagnoses CAD (coronary artery disease) I25.10
== END 2023-11-14 15:06 | disposition home or self-care (01) ==
LOC: HO.HMGC 14:25
PROVIDERS: PCP Nurse Practitioner Family; Visit Provider Nurse Practitioner Family
DX: I25.10 Atherosclerotic heart disease of native coronary artery without angina pectoris (principal)
CPT/HCPCS: 99213

== ENCOUNTER 2023-11-23 13:03 | Outpatient (REF) | payer MEDICARE, SELFPAY ==
[2023-11-23 15:54] LABS: MANUAL DIFF FLAG NO
[2023-11-23 16:02] LABS: Appearance Urine Turbid; Color Urine Yellow; Glucose Urine UA Negative (Negative); Leukocyte Esterase Urine Negative (Negative); Nitrite Urine Negative (Negative); PH 5.5 (5.0-9.0); Specific Gravity - Urine 1.025 (1.005-1.025); Urine Blood Negative (Negative); Urine Ketones Negative (Negative); Urine Protein Negative (Neg-Trace)
[2023-11-23 16:05] LABS: Basophils Absolute Auto 0.1 X10*3/uL (0.0-0.2); Basophils Percent Auto 0.6 % (0-2); Eosinophils Absolute Auto 0.1 X10*3/uL (0.0-0.4); Eosinophils Percent Auto 1.1 % (0-4); Hemoglobin 14.6 g/dl (14.0-18.0); Imm Gran Abs Auto 0.04 X10*3/uL (0.00-0.03); Imm Gran Pct Auto 0.4 % (0.0-0.4); Lymphocytes Absolute Auto 2.6 X10*3/uL (1.2-4.9); Mean Corpuscular HGB Conc 31.7 g/dl (31.0-36.0); Mean Corpuscular Hemoglobin 28.5 pg (27.0-33.0); Mean Corpuscular Volume 89.7 fL (80.0-98.0); Mean Platelet Volume 9.1 fL (9.4-12.4); Monocytes Absolute Auto 0.7 X10*3/uL (0.1-1.2); Monocytes Percent Auto 7.9 % (2-11); Neutrophils Absolute Auto 5.5 x10*3/uL (2.0-8.3); Platelet Count 224 X10*3/uL (160-400); Red Blood Count 5.13 X10*6/uL (4.60-5.80); Red Cell Distribution Width 14.6 % (11.0-16.0); White Blood Count 9.1 X10*3/uL (4.8-10.8)
[2023-11-23 16:33] LABS: Alanine Aminotransferase 17 U/L (0-40); Albumin Level 4.2 g/dL (3.5-5.0); Alkaline Phosphatase 64 U/L (39-117); Anion Gap 15 (12-20); Aspartate Amino Transferase 20 U/L (5-37); Bilirubin Total 0.6 mg/dL (0.0-1.0); Blood Urea Nitrogen 13 mg/dL (9-16); Calcium 9.8 mg/dL (8.4-10.2); Carbon Dioxide 26 mmol/L (22-29); Chloride 103 mmol/L (96-108); Cholesterol 130 mg/dL (<200); Estimated Glomerular Filt Rate > 60; Glucose Fasting 92 mg/dL (60-99); HDL Cholesterol 66 mg/dL (>40); LDL Cholesterol Calculated 53 mg/dL (<100); Potassium 4.4 mmol/L (3.3-5.1); Sodium 140 mmol/L (135-145); Total Protein 7.3 g/dL (6.5-8.0); Triglycerides 55 mg/dL (<150)
[2023-11-23 16:38] LABS: TSH reflex Free T4 0.57 uIU/mL (0.32-4.0)
== END 2023-11-23 13:04 | disposition home or self-care (01) ==
LOC: HO.HMGCLDS 13:03
PROVIDERS: PCP Nurse Practitioner Family; Visit Provider Nurse Practitioner Family
DX: I25.10 Atherosclerotic heart disease of native coronary artery without angina pectoris (principal)
CPT/HCPCS: 36415; 80053; 80061; 81003; 84443; 85025

== ENCOUNTER 2024-05-30 10:29 | Outpatient (AMB) | payer MEDICARE, SELFPAY ==
[2024-05-30 10:46] VITALS: BP 110/70; PULSE 73; O2SAT 98; BMI 25.5
--- NOTE | 2024-05-30 10:46 | A.OFFPC_ITS ---
Vital Signs 05/30/24 10:46 Height 5 ft 9.5 in Weight 175 lb BMI 25.5 BP 110/70 Blood Pressure Location Lt brachial Position Sitting Pulse 73 Pulse Source Pulse Oximeter Pulse Oximetry (%) 98 Intake Visit Reasons: PE Intake Note: pt is here for PE Health Sciences Department Chair Required: No Accompanied by: Self / Same As Patient Allergies amoxicillin Allergy (Mild, Verified 05/30/24 10:46) Abdominal Pain caffeine Allergy (Verified 05/30/24 10:46) Hives hornet venom Allergy (Verified 05/30/24 10:46) Anaphylaxis Penicillins Allergy (Verified 05/30/24 10:46) Agitated Medication List - Last Reconciled 05/30/24 by STEPHEN Ingram- aspirin 81 mg PO DAILY atorvastatin 80 mg PO DAILY cholecalciferol (vitamin D3) 25 mcg PO DAILY glucosamine HCl 1,500 mg PO DAILY metoprolol succinate ER mg PO DAILY multivitamin 1 tab PO DAILY Tobacco use date assessed: 05/30/24 Fall risk assessment: No Falls in past year Last assessed Fall Risk: 05/30/24 Dental Screening Dental Screen Date: 05/30/24 Did you have a dental visit in the last 12 months?: Yes Did you have a dental problem in the last 6 months where you did not have access to dental care?: No Was dental information given to patient?: Patient has dentist HPI PE HPI Details History of Present Illness The patient is a 68 year old male presenting with a recent diagnosis of COVID- 19, approximately one to one and a half weeks ago. He reports an improvement in symptoms. During the course of the illness, he experienced joint pain, which was explained as likely to resolve with supportive care, including increased fluid intake and rest. He is regularly evaluated by a urologist following a history of prostatectomy and receives ongoing care from a youth corrections officer. The patient denies having recent chest pain, shortness of breath, numbness, tingling, nausea, vomiting, diarrhea, or constipation. Additionally, he denies any psychological symptoms such as depression, anxiety, suicidal ideation, or homicidal ideation. His recent activities include moderating his alcohol consumption, particularly having reduced his intake of dark beers. Baseline PSA levels are intended to be obtained for monitoring his urological status. Health Maintenance - Encourage fluid intake and rest for re covery from COVID-19. - Reduced alcohol consumption; reinforce ment of moderation advised. - PSA testing to monitor post-prostatect taqueria status. Social History - Alcohol use: Patient has reduced consu mption, primarily consumes dark beer. - Urological follow-up due to past prost atectomy. - Cardiological follow-up with regular a ppointments. Review of Systems - Musculoskeletal: Reports joint pain wi th COVID-19 onset, now improving. - Respiratory: Denies shortness of breat h. - Cardiovascular: Denies chest pain. - Neurological: Denies numbness or tingl ing. - Gastrointestinal: Denies nausea, vomit ing, diarrhea, and constipation. - Psychiatric: Denies depression, anxiet y, suicidal or homicidal ideation. Physical Exam General: Cooperative, healthy appearing, comfortable, no acute distress and well developed Orientation: Patient oriented x3 Limitations: No limitations Head: Normal to inspection Ears: Hearing grossly normal bilaterally Nose: Normal external nose present Face and sinus: Normal facial exam Eyes: Appearance normal, both eyes and all related structures Neck: Normal visual inspection and Yes full ROM Respiratory: Normal respiratory effort and able to speak in complete sentences. Clear to auscultation bilaterally Cardiovascular: Regular rate and rhythm. Normal S1 and S2 GI: Normal to inspection. Soft to palpation and nontender Skin: No rashes or lesions noted Neuro: Patient oriented x3 Extremities: Normal to inspection, but reports joint pain. Results Plan - Continue supportive care for COVID-19 and monitor symptom progression. - Encourage reduction of alcohol consump tion to enhance overall health. - Obtain and evaluate PSA levels to [facility] post-prostatectomy status. - Follow-up with urologist and cardiolog ist as scheduled. Patient was informed and verbally consented to the use of an ambient scribe for clinic note documentation during this visit. Discussion Notes During the consultation, I discussed with the patient his recent diagnosis of COVID-19 and reassured him about the expected improvement of joint pain with proper hydration and rest. I reviewed his alcohol consumption and encouraged the continued reduction of intake, particularly avoiding excessive consumption of dark beers. The importance of monitoring his prostate health post-prostatectomy through PSA testing was emphasized. I ensured the patient understood the rationale behind these health interventions and the expected course of recovery from his recent illness. Patient Instructions - Continue to drink plenty of fluids and get plenty of rest to aid recovery from COVID-19. - Maintain the reduction in alcohol cons umption, particularly limiting dark beers. - Attend scheduled appointments with uro logist and youth corrections officer. - Monitor for any new or worsening sympt oms and seek medical attention if necessary. [facility] Medical History Raynauds disease Tubular adenoma On beta oliva at home History of prostate cancer GERD (gastroesophageal reflux disease) Hyperlipidemia CAD (coronary artery disease) Myocardial infarction Surgical History History of colonoscopy with polypectomy History of prostatectomy History of heart artery stent Social History Housing: House Are you a primary rn care manager to a significant other at home: No Do you presently have visiting nurse or other home services: No Patient Tobacco Use Status: Former Tobacco user Tobacco use type: Cigarette Years Smoked: quit 1995 e-Cigarette/Vaping Use: Never Used Second Hand Smoke Exposure: No service: No Current occupational status: unemployed Cognitive needs: No Hearing needs: No Vision needs: No Questionnaire PHQ-9 Over the last 2 weeks, how often have you been bothered by any of the following problems? 1. Little interest or pleasure in doing things: not at all 2. Feeling down, depressed, or hopeless: not at all 3. Trouble falling or staying asleep, or sleeping too much: not at all 4. Feeling tired or having little energy: not at all 5. Poor appetite or overeating: not at all 6. Feeling bad about yourself - or that you are a failure or have let yourself or your family down: not at all 7. Trouble concentrating on things, such as reading the newspaper or watching television: not at all 8. Moving or speaking so slowly that other people could have noticed. Or the opposite - being so fidgety or restless that you have been moving around a lot more than usual: not at all 9. Thoughts that you would be better off or of hurting yourself in some way: not at all Total score: 0 Depression Screening Interpretation: Negative Depression Screening Done: Yes 81449 - PHQ-9 Billing: Yes Source: Developed by Bruno Mannet B.W. Chi, Luis Morales and colleagues, with an educational cindy from [employer]. Thrive Questionnaire Date Thrive assessed: 05/30/24 I am a: Patient What is your living situation today?: I have a steady place to live Within the past 12 months, did the food you bought not last and you didn't have the money to get more?: Never true Within the past 12 months, did you worry whether your food would run out before you got money to buy more?: Never true Do you have trouble paying for medicines?: No Do you have trouble getting transportation to medical appointments?: No Do you have trouble paying your heating and electricity bill?: No Do you have trouble taking care of your child, family member or friend?: I choose not to answer this question Do you have trouble with day-to-day activities such as bathing, preparing meals, shopping, managing finances, etc.?: I choose not to answer this question Are you currently unemployed and looking for a job?: I choose not to answer this question Are you interested in more education?: I choose not to answer this question Please select the resources that you would like help with: None Currently or been in a relationship where the following occur: No concerns reported THRIVE Score: 0 AUDIT C Alcohol Use Questionnaire (AUDIT-C) 1. How often do you have a drink containing alcohol?: Never 3. How often do you have six or more drinks on one occasion?: Never Total Score: 0 Score Reviewed/Action Taken: Yes ELSA-7 AMB Questionnaire ELSA-7 Date ELSA - 7 assessed: 05/30/24 Feeling nervous, anxious, or on edge: 0 = Not at all Not being able to stop or control worryin = Not at all Worrying too much about different things: 0 = Not at all Trouble relaxin = Not at all Being so restless that it is hard to sit still: 0 = Not at all Becoming easily annoyed or irritable: 0 = Not at all Feeling afraid as if something awful might happen: 0 = Not at all Total ELSA-7 score (0-4 normal; 5-9 mild; 10-14 moderate; 15-21 severe): 0 Source: Developed by Drs. Mumtaz Lyman, Shaniqua BLuis Leonard and colleagues, with an educational cindy from [employer]. ELSA-7 Assessment Billing ELSA-7 Assessment Tool: ELSA-7 Assessment 33976 Physical exam (Primary Care) Vital Signs: Last Vital Signs Pulse 73 05/30/24 10:46 BP 110/70 05/30/24 10:46 Pulse Ox 98 05/30/24 10:46 BMI result Body Mass Index 25.5 Tobacco/Smoking Status: Tobacco use Status Tobacco use date assessed 05/30/24 05/30/24 10:47 Patient Tobacco Use Status Former Tobacco user 05/30/24 10:47 Tobacco use type Cigarette 05/30/24 10:47 e-Cigarette/Vaping Use Never Used 05/30/24 10:47 PHQ-9: PHQ-9 Score PHQ-9: Total score 0 05/30/24 10:56 Depression Screening Interpretation: Negative Thrive Assessment: Date of Thrive Assessment Date Thrive assessed 05/30/24 05/30/24 10:47 Currently or been in a relationship where the following occur: No concerns reported Coding Level of Care Code Est Pt Prev Care >65y(82989) Diagnoses Physical exam Z00.00 Screening PSA (prostate specific antigen) Z12.5 Vitamin D deficiency E55.9 Additional Codes ELSA-7 Assessment Billing - ELSA-7 Assessment Tool: ELSA-7 Assessment 23952 ([id number]) PHQ-9 - 38470 - PHQ-9 Billing: Yes ([id number]) Assessment & Plan Assessment & Plan (1) Physical exam: Code(s): Z00.00 - Encounter for general adult medical examination without abnormal findings Category: Medical (2) Screening PSA (prostate specific antigen): Code(s): Z12.5 - Encounter for screening for malignant neoplasm of prostate Category: Medical (3) Vitamin D deficiency: Code(s): E55.9 - Vitamin D deficiency, unspecified Category: Medical Plan . Orders: Orders Comprehensive Slemp. Panel Fast Today Z00.00 - Encounter for general adult medical examination without abnormal findings UA CC w/rflx Micro + Cult Today Z00.00 - Encounter for general adult medical examination without abnormal findings Lipid Panel Today Z00.00 - Encounter for general adult medical examination without abnormal findings Prostate Specific Antigen Scr Today Z12.5 - Encounter for screening for malignant neoplasm of prostate AMB EKG-In Office Today Z00.00 - Encounter for general adult medical examination without abnormal findings Complete Blood Count Auto Diff Today Z00.00 - Encounter for general adult medical examination without abnormal findings TSH reflex Free T4 Today Z00.00 - Encounter for general adult medical examination without abnormal findings Vitamin D 25-OH Total Today E55.9 - Vitamin D deficiency, unspecified
--- OUTSIDE RECORDS SUMMARY | 2024-05-30 11:37 | XMS_ITS | Clinical Summary ---
Author Organization [facility] it Address [address] [place] [address] Care Team Providers Care Electromechanical Assembly Technician Name Role Phone Katerine Jake Bernal NP Primary Care Provider [phone] Surgical History Surgery Date Site/Laterality Comments OTHER SURGICAL HISTORY PROCEDURE: ---- OTHER ----; COMMENT: deviated septum KNEE SURGERY Left PROCEDURE: HISTORICAL KNEE SURGERY; COMMENT: scope both knees HERNIA REPAIR Right PROCEDURE: HISTORICAL HERNIA REPAIR/ING COLONOSCOPY 07/15/2006 PROCEDURE: HISTORICAL COLONOSCOPY; COMMENT: Negative examination PROSTATECTOMY 01/31/2017 PROCEDURE: PROSTATECTOMY; COMMENT: prostate cancer COLONOSCOPY 06/24/2017 PROCEDURE: HISTORICAL COLONOSCOPY; COMMENT: Minimal diverticulosis and right colon polyps ? 2 : Tubular adenoma and tubulovillous adenoma. OTHER SURGICAL HISTORY PROCEDURE: [place] OPEN/PERQ PLACEMENT INTRAVASCULAR STENT INITIAL Medical History Medical History Date Comments Other testicular hypofunction 10/11/2005 DX :Other testicular hypofunction; COMMENT: followed by endo, decided against replacement Urticaria, unspecified 10/11/2005 DX:Urtica uli, unspecified GERD (gastroesophageal reflux disease) DX:GERD (gastroesophageal reflux disease) Tubular adenoma DX:Tubular adeno ma Family History Medical History Relation Name Comments Other: prostate trouble, no ca Brother 1 ?prostate ca after testosterone replacement?? Hypertension Brother 2 2 brothers Other: thyroid disease Brother 3 Other: Other Father age 63 Hypertension Mother Other: Other Mother clear cell ca sophie fu, brother born 1946 Stroke Mother age in age 70', Relation Name Status Comments Brother 1 Brother 2 Brother 3 Father Mother Social History Tobacco Use Types Packs/Day Years Used Date Smoking Tobacco: Former Cigarettes Q uit: 05/09/1995 Smokeless Tobacco: Never Alcohol Use Standard Drinks/Week Comments Yes 0 (1 standard drink = 0.6 oz pur e alcohol) Sex and Gender Information Value Date Recorded Sex Assigned at Not on file Gender Identity Not on file Sexual Orientation Not on file Obstetrics History Last Filed Vital Signs Vital Sign Reading Time Taken Comments Blood Pressure 118/78 08/23/2023 2:03 PM EDT Sitting R Arm Pulse 71 08/23/2023 2:03 PM EDT Temperature - - Respiratory Rate - - Oxygen Saturation - - Inhaled Oxygen Concentration - - Weight 80.5 kg (177 lb 8 oz) 08/23/2023 2:03 PM EDT Height 177.8 cm (5' 10 ) 09/10/2022 12: 59 PM EDT Body Mass Index 25.47 09/10/2022 12:59 PM EDT Plan of Treatment Health Maintenance Due Date Last Done Comments COVID-19 Vaccine (#1) 08/28/1960 Pneumococcal Vaccine: 65+ Years (1 of 2 - PCV) 1960 Zoster Vaccines (1 of 2) 12/31/2015 11/05/2015 DTaP,Tdap,and Td Vaccines (2 - Td or Tdap) 08/21/2020 08/21/2010 Abdominal Aortic Aneurysm (AAA) Screen 06/07/2023 Cholesterol Screening (Lipid Panel) 06/07/2023 Colorectal Cancer Screening: Colonoscopy 06/07/2023 Depression Screening 06/07/2023 Falls Risk Assessment 06/07/2023 Hepatitis C Screening 06/07/2023 Hypertension/CHF/CAD Annual BMP Blood Test 06/07/2023 Social Influencers of Health Screening 06/07/2023 Influenza Vaccine (#1) 2024 7, 04/14/2016, 05/29/2014, Additional history exists RSV Immunization Patients 60+ Years Old (1 - 1-dose 75+ series) 2029 Hepatitis B Vaccines Completed 03/17/2004, 10/09/2003, 09/11/2003 HIB Vaccines Aged Out No longer eligi ble based on patient's age to complete this topic HPV Vaccines Aged Out No longer eligi ble based on patient's age to complete this topic Hepatitis A Vaccines Aged Out No long er eligible based on patient's age to complete this topic IPV Vaccines Aged Out No longer eligi ble based on patient's age to complete this topic MMR Vaccines Aged Out No longer eligi ble based on patient's age to complete this topic Meningococcal ACWY Vaccine Aged Out N o longer eligible based on patient's age to complete this topic RSV Immunization Patients Under 20 months Aged Out No longer eligible based on patient's age to complete this topic Varicella Vaccines Aged Out No longer eligible based on patient's age to complete this topic Advance Directives Documents on File Type Date Recorded Patient Hedis Registered Nurse Rn Expl anation Health Care Decision (hx) 02/04/2017 AD VU DIRECTIVE Health Care Decision (hx) 02/04/2017 AD VU DIRECTIVE Health Care Decision (hx) 02/04/2017 AD VU DIRECTIVE Health Care Decision (hx) 02/04/2017 AD VU DIRECTIVE Care Teams Electromechanical Assembly Technician Relationship Specialty Start Date End Date Jake Garcias NP [address] [facility] [place], [place] PCP - General 06/08/22
== END 2024-05-30 11:51 | disposition home or self-care (01) ==
PROVIDERS: PCP Nurse Practitioner Family; Visit Provider Nurse Practitioner Family
DX: Z00.00 Encounter for general adult medical examination without abnormal findings (principal); Z12.5 Encounter for screening for malignant neoplasm of prostate; E55.9 Vitamin D deficiency, unspecified

== ENCOUNTER 2024-05-30 10:29 | Outpatient (REF) | payer MEDICARE, SELFPAY ==
[2024-05-30 13:17] LABS: Appearance Urine Turbid; Color Urine Dark Yellow; Glucose Urine UA Negative (Negative); Leukocyte Esterase Urine Trace (Negative); Nitrite Urine Negative (Negative); PH 5.5 (5.0-9.0); Specific Gravity - Urine >= 1.030 (1.005-1.025); UMIC TRIGGER UACC YES; Urine Blood Negative (Negative); Urine Ketones Trace mg/dL (Negative); Urine Protein 30 (1+) mg/dL (Neg-Trace)
--- OUTSIDE RECORDS SUMMARY | 2024-05-30 13:19 | XMS_ITS | Clinical Summary ---
Author Organization [facility] [employer] [facility] it Address [address] [place] [address] Care Team Providers Care Accounting Professor Name Role Phone Katerine Jake Bernal NP Primary Care Provider [phone] Surgical History Surgery Date Site/Laterality Comments OTHER [...] and tubulovillous adenoma. OTHER SURGICAL HISTORY PROCEDURE: [place] OPEN/PERQ PLACEMENT INTRAVASCULAR STENT INITIAL Medical History [...] Documents on File Type Date Recorded Patient Scissors Sharpener Expl anation Health Care Decision (hx) 02/04/2017 AD VU DIRECTIVE Health Care Decision (hx) 02/04/2017 AD VU DIRECTIVE Health Care Decision (hx) 02/04/2017 AD VU DIRECTIVE Health Care Decision (hx) 02/04/2017 AD VU DIRECTIVE Care Teams Accounting Professor Relationship Specialty Start Date End Date Jake Garcias NP [address] [facility] [place], [place] PCP - General 06/08/22
[2024-05-30 13:24] LABS: Bacteria Urine None Seen (None Seen); Hyaline Casts Urine 0-2 /LPF (0-2); RBC Urine 0-2 /HPF (0-2); Squamous Epithelial Cell Urine 0-2 /HPF (0-2); WBC Urine 0-5 /HPF (0-5)
[2024-05-30 13:39] LABS: MANUAL DIFF FLAG NO
[2024-05-30 13:52] LABS: Basophils Percent Auto 0.2 % (0-2); Eosinophils Absolute Auto 0.1 X10*3/uL (0.0-0.4); Eosinophils Percent Auto 0.6 % (0-4); Hematocrit 41.6 % (42.0-52.0); Hemoglobin 13.3 g/dl (14.0-18.0); Imm Gran Abs Auto 0.07 X10*3/uL (0.00-0.03); Imm Gran Pct Auto 0.7 % (0.0-0.4); Lymphocytes Absolute Auto 1.9 X10*3/uL (1.2-4.9); Lymphocytes Percent Auto 19.2 % (20-40); Mean Corpuscular Hemoglobin 27.9 pg (27.0-33.0); Mean Corpuscular Volume 87.2 fL (80.0-98.0); Mean Platelet Volume 9.2 fL (9.4-12.4); Monocytes Absolute Auto 0.8 X10*3/uL (0.1-1.2); Monocytes Percent Auto 8.3 % (2-11); Neutrophils Absolute Auto 7.2 x10*3/uL (2.0-8.3); Platelet Count 243 X10*3/uL (160-400); Red Blood Count 4.77 X10*6/uL (4.60-5.80); Red Cell Distribution Width 14.8 % (11.0-16.0); White Blood Count 10.1 X10*3/uL (4.8-10.8)
[2024-05-30 14:25] LABS: Alanine Aminotransferase 40 U/L (0-40); Albumin Level 3.9 g/dL (3.5-5.0); Alkaline Phosphatase 64 U/L (39-117); Anion Gap 9 (12-20); Aspartate Amino Transferase 38 U/L (5-37); Bilirubin Total 0.5 mg/dL (0.0-1.0); Blood Urea Nitrogen 12 mg/dL (9-16); Calcium 9.4 mg/dL (8.4-10.2); Carbon Dioxide 27 mmol/L (22-29); Chloride 107 mmol/L (96-108); Cholesterol 96 mg/dL (<200); Estimated Glomerular Filt Rate > 60; Glucose Fasting 92 mg/dL (60-99); HDL Cholesterol 33 mg/dL (>40); LDL Cholesterol Calculated 50 mg/dL (<100); Potassium 4.2 mmol/L (3.3-5.1); Sodium 139 mmol/L (135-145); TSH reflex Free T4 0.36 uIU/mL (0.32-4.0); Total Protein 7.2 g/dL (6.5-8.0); Triglycerides 69 mg/dL (<150); Vitamin D 25-OH Total 51.9 ng/mL (>30)
[2024-05-30 14:36] LABS: Prostate Specific Antigen Scr < 0.10 ng/mL (<0.05-4.0)
== END 2024-05-30 10:30 | disposition home or self-care (01) ==
LOC: HO.HMGCLDS 10:29
PROVIDERS: PCP Nurse Practitioner Family; Visit Provider Nurse Practitioner Family
DX: Z00.00 Encounter for general adult medical examination without abnormal findings (principal); Z12.5 Encounter for screening for malignant neoplasm of prostate; E55.9 Vitamin D deficiency, unspecified
CPT/HCPCS: 36415; 80053; 80061; 81001; 82306; 84153; 84443; 85025; 96127; 99397

== ENCOUNTER 2024-06-27 11:04 | Outpatient (REF) | payer MEDICARE, SELFPAY ==
--- OUTSIDE RECORDS SUMMARY | 2024-06-27 11:52 | XMS_ITS | Clinical Summary ---
Author Organization [facility] it Address [address] [place] [address] Care Team Providers Care Pharmacy Technology Instructor Name Role Phone Katerine Jake Bernal NP Primary Care Provider Surgical History Surgery Date Site/Laterality Comments OTHER [...] and tubulovillous adenoma. OTHER SURGICAL HISTORY PROCEDURE: [place] OPEN/PERQ PLACEMENT INTRAVASCULAR STENT INITIAL Medical History [...] Recorded Sex Assigned at Not on file Legal Sex Male 11:09 AM EST Gender Identity Not on file Sexual Orientation [...] Comments COVID-19 Vaccine (#1) 08/28[birth year]1959 Pneumococcal Vaccine: 50+ Years (1 of 2 - PCV) 1973 Zoster Vaccines (1 of 2) 12/31/2015 11/05/2015 [...] patient's age to complete this topic Meningococcal B Vacine Aged Out No lo nger eligible based on patient's age to complete this topic RSV Immunization Patients Under 20 months Aged Out No longer eligible based on patient's age to complete this topic Varicella Vaccines Aged Out No longer eligible based on patient's age to complete this topic Advance Directives Documents on File Type Date Recorded Patient Systems Tester Expl anation Health Care Decision (hx) 02/04/2017 AD VU DIRECTIVE Health Care Decision (hx) 02/04/2017 AD VU DIRECTIVE Health Care Decision (hx) 02/04/2017 AD VU DIRECTIVE Health Care Decision (hx) 02/04/2017 AD VU DIRECTIVE Care Teams Pharmacy Technology Instructor Relationship Specialty Start Date End Date [facility] [place] [facility] - [facility] 06/08/22
[2024-06-27 13:12] LABS: Appearance Urine Clear; Color Urine Yellow; Glucose Urine UA Negative (Negative); Leukocyte Esterase Urine Negative (Negative); Nitrite Urine Negative (Negative); PH 7.5 (5.0-9.0); Specific Gravity - Urine <= 1.005 (1.005-1.025); Urine Blood Negative (Negative); Urine Ketones Negative (Negative); Urine Protein Negative (Neg-Trace)
[2024-06-27 13:19] LABS: MANUAL DIFF FLAG NO
[2024-06-27 13:36] LABS: Basophils Percent Auto 0.4 % (0-2); Eosinophils Absolute Auto 0.1 X10*3/uL (0.0-0.4); Hematocrit 43.1 % (42.0-52.0); Hemoglobin 13.7 g/dl (14.0-18.0); Imm Gran Abs Auto 0.03 X10*3/uL (0.00-0.03); Imm Gran Pct Auto 0.3 % (0.0-0.4); Immature Retic Fraction 13.5 % (2.3-13.4); Lymphocytes Absolute Auto 3.2 X10*3/uL (1.2-4.9); Lymphocytes Percent Auto 32.4 % (20-40); Mean Corpuscular HGB Conc 31.8 g/dl (31.0-36.0); Mean Corpuscular Hemoglobin 28.2 pg (27.0-33.0); Mean Corpuscular Volume 88.9 fL (80.0-98.0); Monocytes Absolute Auto 0.7 X10*3/uL (0.1-1.2); Neutrophils Absolute Auto 5.8 x10*3/uL (2.0-8.3); Neutrophils Percent Auto 58.9 % (45-73); Platelet Count 239 X10*3/uL (160-400); Red Blood Count 4.85 X10*6/uL (4.60-5.80); Red Cell Distribution Width 15.9 % (11.0-16.0); Retic HGB Equivalent 30.9 pg (30.0-35.0); Reticulocytes Absolute 0.096 X10*6/uL (0.026-0.095); White Blood Count 9.9 X10*3/uL (4.8-10.8)
[2024-06-27 13:59] LABS: Alanine Aminotransferase 33 U/L (0-40); Alkaline Phosphatase 63 U/L (39-117); Anion Gap 9 (12-20); Aspartate Amino Transferase 36 U/L (5-37); Bilirubin Total 0.4 mg/dL (0.0-1.0); Blood Urea Nitrogen 12 mg/dL (9-16); Calcium 9.3 mg/dL (8.4-10.2); Carbon Dioxide 28 mmol/L (22-29); Chloride 106 mmol/L (96-108); Estimated Glomerular Filt Rate > 60; Glucose Random 73 mg/dL (60-115); Iron 110 mcg/dL (45-160); Percent Iron Saturation 45 % (15-50); Potassium 4.8 mmol/L (3.3-5.1); Sodium 138 mmol/L (135-145); Total Iron Binding Capacity 245 mcg/dL (228-428); Total Protein 7.2 g/dL (6.5-8.0); Unsaturated Iron Binding 135 ug/dL
[2024-06-27 14:07] LABS: Lactate Dehydrogenase 215 U/L (118-273)
[2024-06-27 14:14] LABS: Ferritin 96 ng/mL (20-250)
[2024-06-27 14:24] LABS: Folate 14.4 ng/mL (> or = 4.0); Vitamin B12 667 pg/mL (200-900)
== END 2024-06-27 11:05 | disposition home or self-care (01) ==
LOC: HO.HMGCLDS 11:04
PROVIDERS: PCP Nurse Practitioner Family; Visit Provider Nurse Practitioner Family
DX: Z00.00 Encounter for general adult medical examination without abnormal findings (principal); D64.9 Anemia, unspecified
CPT/HCPCS: 36415; 80053; 81003; 82607; 82728; 82746; 83540; 83615; 85025; 85045

== ENCOUNTER 2024-09-04 08:57 | Outpatient (AMB) | payer MEDICARE, SELFPAY ==
[2024-09-04 09:02] VITALS: BP 112/70; PULSE 76; O2SAT 97; BMI 26.3
--- NOTE | 2024-09-04 09:02 | A.OFFPC_ITS ---
Vital Signs 09/04/24 09:02 Height 5 ft 9.5 in Weight 181 lb BMI 26.3 BP 112/70 Blood Pressure Location Lt brachial Position Sitting Pulse 76 Pulse Source Pulse Oximeter Pulse Oximetry (%) 97 Oxygen Delivery Method Room Air Intake Visit Reasons: 6m follow up Element Setter Required: No Accompanied by: Self / Same As Patient Allergies amoxicillin Allergy (Mild, Verified 09/04/24 09:03) Abdominal Pain caffeine Allergy (Verified 09/04/24 09:03) Hives hornet venom Allergy (Verified 09/04/24 09:03) Anaphylaxis Penicillins Allergy (Verified 09/04/24 09:03) Agitated Tobacco use date assessed: 05/30/24 Fall risk assessment: No Falls in past year Last assessed Fall Risk: 09/04/24 Dental Screening Dental Screen Date: 05/30/24 HPI 6m follow up HPI Details Chief Complaint Patient presents for follow-up of hypertension and dyslipidemia. History of Present Illness The patient is a 69-year-old male presenting with follow-up for hypertension and dyslipidemia. His report indicates stable vital signs, but he has been consuming more light beer, potentially contributing to a mild weight gain. The weight increase could also be related to increased portion sizes. He understands the importance of dietary changes, along with physical activity, to better control his health conditions. He continues to see a cargo vessel stewardess regularly and denies any symptoms such as chest pain, shortness of breath, or headaches. He is due for lab tests today to evaluate his cholesterol levels further. Social History - Regular alcohol consumption, specifica lly increased intake of light beer. - Admits to overeating with larger porti on sizes than previously. - Acknowledges the importance of incorpo rating more physical activity into his routine. Health Maintenance - Discussion of dietary changes to manag e hypertension and dyslipidemia. - Plan for cholesterol screening via blo od tests today. - Encouragement of increased physical ac tivity to complement weight management efforts. Review of Systems - Cardiovascular: Denies chest pain, juan manuel rtness of breath. - Neurological: Denies blurred vision, d izziness, headaches. - General: Reports feeling well otherwis e. Physical Exam General: Cooperative, healthy appearing, comfortable, no acute distress and well developed Orientation: Patient oriented x3 Limitations: No limitations Head: Normal to inspection Ears: Hearing grossly normal bilaterally Nose: Normal external nose present Face and sinus: Normal facial exam Eyes: Appearance normal, both eyes and all related structures Neck: Normal visual inspection and Yes full ROM Respiratory: Normal respiratory effort and able to speak in complete sentences. Clear to auscultation bilaterally Cardiovascular: Regular rate and rhythm. Normal S1 and S2 GI: Normal to inspection. Soft to palpation and nontender Skin: No rashes or lesions noted Neuro: Patient oriented x3 Extremities: Normal to inspection Results - Labs: Scheduled cholesterol test as a part of today's visit to evaluate dyslipidemia. Plan For hypertension and dyslipidemia, I will assess his blood pressure control and recommend lifestyle changes to optimize management. The patient will have cholesterol levels checked today, influencing dietary advice, particularly on portion sizes and alcohol consumption. Encouraging regular physical activity will complement his weight management efforts. Continued follow-up with his cargo vessel stewardess will be ensured for ongoing cardiovascular health assessment. Discussion Notes I discussed with the patient the management of his hypertension and dyslipidemia, highlighting the importance of dietary changes and increased physical activity. We addressed the impact of alcohol consumption on his weight and overall health. I explained the benefits of the upcoming cholesterol tests in adjusting treatment plans. The patient is advised to see a cargo vessel stewardess regularly, reinforcing the importance of comprehensive cardiovascular care. We also covered the need for portion control in his diet as a strategy to manage weight and reduce cardiovascular risk factors. Patient Instructions - Cut down on portion sizes during meals . - Aim to reduce alcohol consumption, gerda ecially light beer. - Stay active, incorporating regular phy sical exercise. - Follow up with lab results for cholest ron testing as soon as available. - Continue regular visits with your card iologist. - Seek medical attention if experiencing symptoms such as chest pain or shortness of breath. [facility] Medical History Raynauds disease Tubular adenoma On beta oliva at home History of prostate cancer GERD (gastroesophageal reflux disease) Hyperlipidemia CAD (coronary artery disease) Myocardial infarction Surgical History History of colonoscopy with polypectomy History of prostatectomy History of heart artery stent Social History Housing: House Are you a primary wound care coordinator to a significant other at home: No Do you presently have visiting nurse or other home services: No Patient Tobacco Use Status: Former Tobacco user Tobacco use type: Cigarette Years Smoked: quit 1995 e-Cigarette/Vaping Use: Never Used Second Hand Smoke Exposure: No service: No Current occupational status: unemployed Cognitive needs: No Hearing needs: No Vision needs: No Questionnaire Thrive Questionnaire Date Thrive assessed: 09/04/24 I am a: Patient What is your living situation today?: I have a steady place to live Within the past 12 months, did the food you bought not last and you didn't have the money to get more?: Never true Within the past 12 months, did you worry whether your food would run out before you got money to buy more?: Never true Do you have trouble paying for medicines?: No Do you have trouble getting transportation to medical appointments?: No Do you have trouble paying your heating and electricity bill?: No Do you have trouble taking care of your child, family member or friend?: I choose not to answer this question Do you have trouble with day-to-day activities such as bathing, preparing meals, shopping, managing finances, etc.?: I choose not to answer this question Are you currently unemployed and looking for a job?: I choose not to answer this question Are you interested in more education?: I choose not to answer this question Please select the resources that you would like help with: None Currently or been in a relationship where the following occur: No concerns reported THRIVE Score: 0 AUDIT C Alcohol Use Questionnaire (AUDIT-C) 1. How often do you have a drink containing alcohol?: Never 3. How often do you have six or more drinks on one occasion?: Never Total Score: 0 Score Reviewed/Action Taken: Yes ELSA-7 AMB Questionnaire ELSA-7 Date ELSA - 7 assessed: 09/04/24 Feeling nervous, anxious, or on edge: 0 = Not at all Not being able to stop or control worryin = Not at all Worrying too much about different things: 0 = Not at all Trouble relaxin = Not at all Being so restless that it is hard to sit still: 0 = Not at all Becoming easily annoyed or irritable: 0 = Not at all Feeling afraid as if something awful might happen: 0 = Not at all Total ELSA-7 score (0-4 normal; 5-9 mild; 10-14 moderate; 15-21 severe): 0 Source: Developed by Drs. Mumtaz Lyman, Shaniqua Mireles, Luis Morales and colleagues, with an educational cindy from [employer]. ELSA-7 Assessment Billing ELSA-7 Assessment Tool: ELSA-7 Assessment 95007 Physical exam (Primary Care) Vital Signs: Last Vital Signs Pulse 76 09/04/24 09:02 BP 112/70 09/04/24 09:02 Pulse Ox 97 09/04/24 09:02 Oxygen Delivery Method Room Air 09/04/24 09:02 BMI result Body Mass Index 26.3 Tobacco/Smoking Status: Tobacco use Status Tobacco use date assessed 05/30/24 09/04/24 09:03 Patient Tobacco Use Status Former Tobacco user 09/04/24 09:03 Tobacco use type Cigarette 09/04/24 09:03 e-Cigarette/Vaping Use Never Used 09/04/24 09:03 Thrive Assessment: Date of Thrive Assessment Date Thrive assessed 09/04/24 09/04/24 09:03 Currently or been in a relationship where the following occur: No concerns reported Coding Level of Care Code Est Pt Level 3 (53754) Diagnoses Hyperlipidemia E78.5 Screening for colon cancer Z12.11 Additional Codes ELSA-7 Assessment Billing - ELSA-7 Assessment Tool: ELSA-7 Assessment 41878 ([id number]) Assessment & Plan Assessment & Plan (1) Hyperlipidemia: Code(s): E78.5 - Hyperlipidemia, unspecified Category: Medical (2) Screening for colon cancer: Code(s): Z12.11 - Encounter for screening for malignant neoplasm of colon Category: Medical Plan . Orders: Orders Comprehensive [place]. Panel Fast Today E78.5 - Hyperlipidemia, unspecified TSH reflex Free T4 Today E78.5 - Hyperlipidemia, unspecified UA CC w/rflx Micro + Cult Today E78.5 - Hyperlipidemia, unspecified Complete Blood Count Auto Diff Today E78.5 - Hyperlipidemia, unspecified Lipid Panel Today E78.5 - Hyperlipidemia, unspecified Referrals Gastroenterology Referral Z12.11 - Encounter for screening for malignant neoplasm of colon
--- OUTSIDE RECORDS SUMMARY | 2024-09-04 09:33 | XMS_ITS | Clinical Summary ---
Author Organization [facility] it Address [address] [place] [address] Care Team Providers Care Compound Mixer Name Role Phone Katerine Jake Bernal NP [...] and tubulovillous adenoma. OTHER SURGICAL HISTORY PROCEDURE: [place] OPEN/PERQ PLACEMENT INTRAVASCULAR STENT INITIAL Medical History [...] Influencers of Health Screening 06/07/2023 Influenza Vaccine (Season Ended) 2025 01/20/2017, 04/14/2016, 05/29/2014, Additional history exists RSV Immunization Adult Patients (1 - 1-dose 75+ series) 2029 Hepatitis [...] age to complete this topic Meningococcal B Vaccine Aged Out No l onger eligible based on patient's age to complete this topic RSV Immunization Patients Under 20 months Aged Out No longer eligible based on patient's age to complete this topic Varicella Vaccines Aged Out No longer eligible based on patient's age to complete this topic Advance Directives Documents on File Type Date Recorded Patient Swim Instructor Expl anation Health Care Decision (hx) 02/04/2017 AD VU DIRECTIVE Health Care Decision (hx) 02/04/2017 AD VU DIRECTIVE Health Care Decision (hx) 02/04/2017 AD VU DIRECTIVE Health Care Decision (hx) 02/04/2017 AD VU DIRECTIVE Care Teams Compound Mixer Relationship Specialty Start Date End Date Jake Garcias NP [address] [place] P[facility] - General 06/08/22
== END 2024-09-04 09:38 | disposition home or self-care (01) ==
LOC: HO.HMCC 08:58
PROVIDERS: PCP Nurse Practitioner Family; Visit Provider Nurse Practitioner Family
DX: E78.5 Hyperlipidemia, unspecified (principal); Z12.11 Encounter for screening for malignant neoplasm of colon

== ENCOUNTER 2024-09-04 08:57 | Outpatient (REF) | payer MEDICARE, SELFPAY ==
--- OUTSIDE RECORDS SUMMARY | 2024-09-04 10:41 | XMS_ITS | Clinical Summary ---
Author Organization [facility] it Address [address] [place] [address] Care Team Providers Care Cashier Payments Received Name Role Phone Katerine Jake Bernal NP [...] and tubulovillous adenoma. OTHER SURGICAL HISTORY PROCEDURE: [place] OPEN/PERQ PLACEMENT INTRAVASCULAR STENT INITIAL Medical History [...] Documents on File Type Date Recorded Patient Logistics Team Leader Expl anation Health Care Decision (hx) 02/04/2017 AD VU DIRECTIVE Health Care Decision (hx) 02/04/2017 AD VU DIRECTIVE Health Care Decision (hx) 02/04/2017 AD VU DIRECTIVE Health Care Decision (hx) 02/04/2017 AD VU DIRECTIVE Care Teams Cashier Payments Received Relationship Specialty Start Date End Date Jake Garcias NP [address] [facility] [place] P[facility] - General 06/08/22
[2024-09-04 13:14] LABS: MANUAL DIFF FLAG NO
[2024-09-04 13:19] LABS: Appearance Urine Clear; Color Urine Yellow; Glucose Urine UA Negative (Negative); Leukocyte Esterase Urine Negative (Negative); Nitrite Urine Negative (Negative); PH 7.5 (5.0-9.0); Urine Blood Negative (Negative); Urine Ketones Negative (Negative); Urine Protein Negative (Neg-Trace)
[2024-09-04 13:30] LABS: Basophils Absolute Auto 0.1 X10*3/uL (0.0-0.2); Basophils Percent Auto 0.4 % (0-2); Eosinophils Absolute Auto 0.1 X10*3/uL (0.0-0.4); Eosinophils Percent Auto 1.1 % (0-4); Hematocrit 49.1 % (42.0-52.0); Hemoglobin 15.5 g/dl (14.0-18.0); Imm Gran Abs Auto 0.04 X10*3/uL (0.00-0.03); Imm Gran Pct Auto 0.3 % (0.0-0.4); Lymphocytes Absolute Auto 3.4 X10*3/uL (1.2-4.9); Lymphocytes Percent Auto 29.4 % (20-40); Mean Corpuscular HGB Conc 31.6 g/dl (31.0-36.0); Mean Corpuscular Hemoglobin 28.4 pg (27.0-33.0); Mean Corpuscular Volume 90.1 fL (80.0-98.0); Mean Platelet Volume 9.2 fL (9.4-12.4); Monocytes Absolute Auto 0.7 X10*3/uL (0.1-1.2); Monocytes Percent Auto 6.3 % (2-11); Neutrophils Absolute Auto 7.3 x10*3/uL (2.0-8.3); Neutrophils Percent Auto 62.5 % (45-73); Platelet Count 218 X10*3/uL (160-400); Red Blood Count 5.45 X10*6/uL (4.60-5.80); Red Cell Distribution Width 15.1 % (11.0-16.0); White Blood Count 11.7 X10*3/uL (4.8-10.8)
[2024-09-04 13:56] LABS: Alanine Aminotransferase 34 U/L (0-40); Albumin Level 4.3 g/dL (3.5-5.0); Alkaline Phosphatase 60 U/L (39-117); Anion Gap 12 (12-20); Aspartate Amino Transferase 39 U/L (5-37); Bilirubin Total 0.6 mg/dL (0.0-1.0); Blood Urea Nitrogen 11 mg/dL (9-16); Calcium 9.6 mg/dL (8.4-10.2); Carbon Dioxide 26 mmol/L (22-29); Chloride 104 mmol/L (96-108); Cholesterol 146 mg/dL (<200); Estimated Glomerular Filt Rate > 60; Glucose Fasting 89 mg/dL (60-99); HDL Cholesterol 66 mg/dL (>40); LDL Cholesterol Calculated 65 mg/dL (<100); Potassium 4.6 mmol/L (3.3-5.1); Sodium 137 mmol/L (135-145); TSH reflex Free T4 0.68 uIU/mL (0.32-4.0); Total Protein 7.3 g/dL (6.5-8.0); Triglycerides 79 mg/dL (<150)
== END 2024-09-04 08:58 | disposition home or self-care (01) ==
LOC: HO.HMGCLDS 08:57
PROVIDERS: PCP Nurse Practitioner Family; Visit Provider Nurse Practitioner Family
DX: E78.5 Hyperlipidemia, unspecified (principal); I10 Essential (primary) hypertension
CPT/HCPCS: 36415; 80053; 80061; 81003; 84443; 85025; 96127; 99212

== ENCOUNTER 2024-09-26 09:49 | Outpatient (REF) | payer MEDICARE, SELFPAY ==
--- OUTSIDE RECORDS SUMMARY | 2024-09-26 11:11 | XMS_ITS | Clinical Summary ---
[facility] [address] [place] [address] Care Team Providers Care Commercial Loan Reviewer Name Role Phone TamikaJake casper Dolores SHAH Primary Care Provider [phone] Surgical History Surgery Date Site/Laterality Comments OTHER [...] and tubulovillous adenoma. OTHER SURGICAL HISTORY PROCEDURE: [place] OPEN/PERQ PLACEMENT INTRAVASCULAR STENT INITIAL Medical History [...] 09/10/2022 12:59 PM EDT Plan of Treatment Upcoming Encounters Date Type Department Care Team (Late st Contact Info) Description 12/25/2024 1:30 PM EDT Office Visit [address] [place] [address] Jake Boyd MD [address] [place] [address] [address] [place] [address] Health Maintenance Due Date Last Done Comments [...] 06/07/2023 Hypertension/CHF/CAD Annual BMP Blood Test 06/07/2023 Medicare Annual Wellness Visit 06/07/2023 Social Influencers of Health Screening 06/07/2023 [...] on patient's age to complete this topic Insurance BLUE CROSS - [place] MEDICARE ADVANTAGE Advance Directives Documents on File Type Date Recorded Patient Nitroglycerin Distributor Expl anation Health Care Decision (hx) 02/04/2017 AD VU DIRECTIVE Health Care Decision (hx) 02/04/2017 AD VU DIRECTIVE Health Care Decision (hx) 02/04/2017 AD VU DIRECTIVE Health Care Decision (hx) 02/04/2017 AD VU DIRECTIVE Care Teams Commercial Loan Reviewer Relationship Specialty Start Date End Date Jake Garcias NP [address] [place], [place] PCP - General 06/08/22
[2024-09-26 13:15] LABS: MANUAL DIFF FLAG NO
[2024-09-26 13:20] LABS: Basophils Absolute Auto 0.1 X10*3/uL (0.0-0.2); Basophils Percent Auto 0.5 % (0-2); Eosinophils Absolute Auto 0.1 X10*3/uL (0.0-0.4); Eosinophils Percent Auto 1.4 % (0-4); Hematocrit 44.1 % (42.0-52.0); Hemoglobin 14.1 g/dl (14.0-18.0); Imm Gran Abs Auto 0.02 X10*3/uL (0.00-0.03); Imm Gran Pct Auto 0.2 % (0.0-0.4); Lymphocytes Absolute Auto 3.1 X10*3/uL (1.2-4.9); Lymphocytes Percent Auto 31.6 % (20-40); Mean Corpuscular Hemoglobin 28.4 pg (27.0-33.0); Mean Corpuscular Volume 88.9 fL (80.0-98.0); Mean Platelet Volume 9.5 fL (9.4-12.4); Monocytes Absolute Auto 0.6 X10*3/uL (0.1-1.2); Monocytes Percent Auto 5.8 % (2-11); Neutrophils Absolute Auto 5.9 x10*3/uL (2.0-8.3); Neutrophils Percent Auto 60.5 % (45-73); Platelet Count 233 X10*3/uL (160-400); Red Blood Count 4.96 X10*6/uL (4.60-5.80); Red Cell Distribution Width 14.2 % (11.0-16.0); White Blood Count 9.8 X10*3/uL (4.8-10.8)
== END 2024-09-26 09:50 | disposition home or self-care (01) ==
LOC: HO.HMGCLDS 09:49
PROVIDERS: PCP Nurse Practitioner Family; Visit Provider Nurse Practitioner Family
DX: D72.829 Elevated white blood cell count, unspecified (principal)
CPT/HCPCS: 36415; 85025

== ENCOUNTER 2025-01-14 10:11 | Outpatient (AMB) | payer MEDICARE, SELFPAY ==
--- NOTE | 2025-01-14 10:20 | MHC.OFFVIS ---
Vital Signs 01/14/25 10:22 Height 5 ft 9.5 in Weight 176 lb 5.917 oz BMI 25.7 BP 117/65 Blood Pressure Location Lt brachial Position Sitting Pulse 71 Intake Visit Reasons: Re-Establish Care for Colonoscopy. Intake Note: Ed presents in the office as a new patient - seen in the past. CC: States he is due for a colonoscopy. No concerns at all just had Rock in the past. Form Layer Required: No Allergies amoxicillin Allergy (Mild, Verified 01/14/25 10:24) Abdominal Pain caffeine Allergy (Verified 01/14/25 10:24) Hives hornet venom Allergy (Verified 01/14/25 10:24) Anaphylaxis Penicillins Allergy (Verified 01/14/25 10:24) Agitated HPI HPI Re-Establish Care for Colonoscopy.: Details: 69 yr old m here for f/u He had colo 2021 with x 3 TA polyps removed -right colon diverticulosis severe on the left He has no major symptoms occasionally he sees blood in stool going on for years, usu on wiping he has issues with large and hard stools but recently he has been taking fiber caps and helping a lot EXAM: GENERAL: The patient is well developed and nontoxic. VITAL SIGNS:see workflow HEENT: Nonicteric sclerae, PERRLA, EOMI. Oropharynx clear. Moist mucous membranes. Conjunctivae appear well perfused. No thyroid mass. CHEST: Chest wall is nontender. HEART: Regular rate and rhythm without murmurs. LUNGS: Clear to auscultation bilaterally. ABDOMEN: Soft, positive bowel sounds, nontender, no organomegaly.no flank tenderness SKIN: No rash, no excessive bruising, petechiae, or purpura. NEUROLOGIC: Cranial nerves II-XII intact without motor/sensory deficit. Psych: normal affect A/P: 1/ Hx of colon polyps - no FH of CRC 2/ Diverticulosis PLAN: 1/colonsocopy w/ suprep 2/ high fiber diet discussed [facility] Medical History Pure hypercholesterolemia Microscopic hematuria Raynauds disease Tubular adenoma On beta oliva at home History of prostate cancer GERD (gastroesophageal reflux disease) Hyperlipidemia CAD (coronary artery disease) Myocardial infarction Surgical History History of colonoscopy with polypectomy History of prostatectomy History of heart artery stent Social History Housing: House Are you a primary home health care worker to a significant other at home: No Do you presently have visiting nurse or other home services: No Patient Tobacco Use Status: Former Tobacco user Tobacco use type: Cigarette Years Smoked: quit 1995 e-Cigarette/Vaping Use: Never Used Second Hand Smoke Exposure: No service: No Current occupational status: unemployed Cognitive needs: No Hearing needs: No Vision needs: No Physical Exam Vital Signs: Last Vital Signs Pulse 71 01/14/25 10:22 BP 117/65 01/14/25 10:22 BMI result Body Mass Index 25.7 Assessment & Plan Assessment & Plan (1) Screening for colon cancer: Code(s): Z12.11 - Encounter for screening for malignant neoplasm of colon Category: Medical Plan: as above Medications: New sodium,potassium,mag sulfates 17.5-3.13-1.6 gram (Suprep Bowel Prep Kit) DILUTE; drink 1/2 at 6-8 pm and half at 11 PM- 1AM 354 mL 0RF Coding Level of Care Code Est Pt Level 3 (84605) Diagnoses Screening for colon cancer Z12.11
[2025-01-14 10:22] VITALS: BP 117/65; PULSE 71; BMI 25.7
--- OUTSIDE RECORDS SUMMARY | 2025-01-14 12:03 | XMS_ITS | Clinical Summary ---
Author Organization [facility] Address [address] [place] [address] Phone Care Team Providers Care Swing Saw Operator Name Role Phone Libby Garcias NP Primary Care Provider Allergies Active Allergy Reactions Criticality Noted Date Comments Amoxicillin 04/23/2016 Bee Pollens Anaphylaxis High 01/09/2016 Bee Venom Protein (Honey Bee) 05/29/2014 Other Reaction(s): REDNESS CARRIES EPIPEN flushing Caffeine Hives,Nausea Only High 01/09/2016 Medications CHOLECALCIFER OL, VITAMIN D3, ORAL Take 5,000 Int'l Units by mouth 1 (one) time each day. Active aspirin 81 mg tablet Take 81 mg by mouth. Active multivitamin with minerals (CENTRUM/CERT AVIT) 18-400 mg-mcg tablet tablet Take by mouth 1 (one) time each day. Active metoprolol succinate (TOPROL-XL) 25 mg 24 hr tablet Take 1 tablet (25 mg total) by mouth 1 (one) time each day. Active EPINEPHrine (EPIPEN) 0.3 mg/0.3 mL injection Inject 0.3 mL (0.3 mg total) as directed. 11/03/19 17 Active UNABLE TO FIND CoQ10 Active UNABLE TO FIND Glucosamine Chondroitin 1200 -1500 Active atorvastatin (LIPITOR) 80 mg tablet TAKE 1 TABLET BY MOUTH EVERY DAY 90 tablet 1 01/04/20 25 Active atorvastatin (LIPITOR) 80 mg tablet TAKE 1 TABLET BY MOUTH EVERY DAY 90 tablet 10/05/19 25 025 Discontinued doxycycline (VIBRAMYCIN) 50 mg capsule TAKE 1 CAP BY MOUTH 2 TIMES DAILY. 10/29/19 16 025 Discontinued(Th erapy completed) Active Problems Problem Noted Date Diagnosed Date Pure hypercholesterolemia 12/24/2024 Assessment & Plan (12/25/2024 2:15 PM EDT): The patient is treated for hyperlipidemia. He informs me that his results have been good but he does not have ready access to these numbers, nor do I. He will contact his primary care provider's office to send the results to us by facsimile. Orders: ECG 12 lead Coronary artery disease invo lving [place] coronary artery of [place] heart without angina pectoris 12/24/2024 Overview (12/24/2024): Inferior wall myocardial infarction in April 2016 treated with successful stenting of a culprit right coronary artery lesion. A 70% LAD stenosis was left alone and he subsequently had a negative stress test and was free of anginal symptoms. Secondary prevention measures are being pursued. Assessment & Plan (12/25/2024 2:15 PM EDT): History of right coronary artery stenting in the setting of an inferior wall myocardial infarction 9 years ago. A 70% LAD stenosis was left alone at that time and the patient has not had any evidence of active angina. He has had negative stress tests. I have encouraged him to work on behavioral approaches to secondary prevention. Orders: ECG 12 lead Encounters Date Type Department Care Team Description 12/25/2024 1:30 PM EDT Office Visit [facility] [address] [place] [address] Libby Boyd MD Pure hypercholesterolemia (Primary Dx); Coronary artery disease involving [place] coronary artery of [place] heart without angina pectoris 11/12/2024 Telephone [facility] [address] [place] [address] Libby Boyd MD from Last 3 Months Surgical History Surgery Date Site/Laterality Comments OTHER SURGICAL HISTORY PROCEDURE: ---- OTHER ----; COMMENT: deviated septum KNEE SURGERY Left PROCEDURE: HISTORICAL KNEE SURGERY; COMMENT: scope both knees HERNIA REPAIR Right PROCEDURE: HISTORICAL HERNIA REPAIR/ING COLONOSCOPY 07/15/2006 PROCEDURE: HISTORICAL COLONOSCOPY; COMMENT: Negative examination PROSTATECTOMY 01/31/2017 PROCEDURE: PROSTATECTOMY; COMMENT: prostate cancer COLONOSCOPY 06/24/2017 PROCEDURE: HISTORICAL COLONOSCOPY; COMMENT: Minimal diverticulosis and right colon polyps 2: Tubular adenoma and tubulovillous adenoma. OTHER SURGICAL HISTORY PROCEDURE: [place] OPEN/PERQ PLACEMENT INTRAVASCULAR STENT INITIAL Medical History [...] Mother Other: Other Mother clear cell ca k sabraney, brother born 1946 Stroke Mother age in age 70', Relation Name Status Comments Brother 1 Brother 2 Brother 3 Father Mother Social History Tobacco Use Types Packs/Day Years Used Date Smoking Tobacco: Former Cigarettes Q uit: 05/09/1995 Smokeless Tobacco: Never Alcohol Use Standard Drinks/Week Comments Yes 0 (1 standard drink = 0.6 oz pure alcohol) 6 beers every day or every other day Sex and Gender Information Value Date Recorded Sex Assigned at Not on file Legal Sex Male 11:09 AM EST Gender Identity Not on file Sexual Orientation Not on file Obstetrics History Last Filed Vital Signs Vital Sign Reading Time Taken Comments Blood Pressure 120/80 12/25/2024 1:28 PM EDT Pulse 70 12/25/2024 1:28 PM EDT Temperature - - Respiratory Rate - - Oxygen Saturation 97% 12/25/2024 1:28 PM EDT Inhaled Oxygen Concentration - - Weight 80.6 kg (177 lb 11.2 oz) 12/25/2024 1:28 PM EDT Height 177.8 cm (5' 10 ) 12/25/2024 1:28 PM EDT Body Mass Index 25.5 12/25/2024 1:28 PM EDT Plan of Treatment Health Maintenance Due Date Last Done Comments Zoster Vaccines (3 of 3) 03/31/2020 02/04/2020, 10/08 DTaP,Tdap,and Td Vaccines (3 - Td or Tdap) 08/21/2020 08/21/2010, 03/17/2004 Abdominal Aortic Aneurysm (AAA) Screen 06/07/2023 Cholesterol Screening (Lipid Panel) 06/07/2023 Colorectal Cancer Screening: Colonoscopy 06/07/2023 Falls Risk Assessment 06/07/2023 Hepatitis C Screening 06/07/2023 Hypertension/CHF/CAD Annual BMP Blood Test 06/07/2023 Medicare Annual Wellness Visit 06/07/2023 Social Influencers of Health Screening 06/07/2023 Depression Screening 05/09/2024 COVID-19 Vaccine ( season) 2025 03/18/2022, 05/05/2021, 08/19/2020, Additional history exists Influenza Vaccine (#1) 2025 , 03/18/2022, 02/17/2021, Additional history exists RSV Immunization Adult Patients (1 - 1-dose 75+ series) 2029 Hepatitis B Vaccines Completed 03/17/2004, 10/09/2003, 09/11/2003 Pneumococcal Vaccine: 50+ Years Completed 02/17/2021, 09/27/2019, 04/17/2016 HIB Vaccines Aged Out No longer eligi [...] on patient's age to complete this topic Procedures Procedure Name Priority Date/Time Associated Diagnosis Comments ECG 12-LEAD Routine 12/25/2024 1:43 PM EDT Pure hypercholesterolemia Coronary artery disease involving [place] coronary artery of [place] heart without angina pectoris from Last 3 Months Results * ECG 12 lead (12/25/2024 1:43 PM EDT) Ventricular Rate ECG 70 BPM GEMUSE Atrial Rate 70 BPM GEMUSE P-R Interval 166 ms GEMUSE QRS Duration 82 ms GEMUSE Q-T Interval 382 ms GEMUSE QTc 412 ms GEMUSE P Wave [place] 65 degrees GEMUSE R [place] 60 degrees GEMUSE T [place] 20 degrees GEMUSE ECG Interpretation Sinus rhythm with occasional Premature ventricular complexes Otherwise normal ECG When compared with ECG of 31-JAN-2017 06:25, Premature ventricular complexes are now Present Confirmed by MD BETZAIDA, LIBBY ([id number]) on 12/25/2024 2:09:34 PM GEMUSE 12/25/2024 1:43 PM EDT 12/25/2024 2:09 PM EDT us Libby Boyd MD ECG ORDERABLES Final Result GEMUSE from Last 3 Months Insurance BLUE CR[place] - [place] Advance Directives Documents on File Type Date Recorded Patient Cobol Application Developer Expl anation Health Care Decision (hx) 02/04/2017 AD VU DIRECTIVE Health Care Decision (hx) 02/04/2017 AD VU DIRECTIVE Health Care Decision (hx) 02/04/2017 AD VU DIRECTIVE Health Care Decision (hx) 02/04/2017 AD VU DIRECTIVE Care Teams Swing Saw Operator Relationship Specialty Start Date End Date Libby Garcias, ALYSSA [address] [facility] Kira MD PCP - General 06/08/22
--- OUTSIDE RECORDS SUMMARY | 2025-01-14 12:03 | XMS_ITS | Clinical Summary ---
Author Organization [facility] Address [address] [address] Phone Care Team Providers Care Catalyst Impregnator Name Role Phone Zacarias Cardenas MD Primary Care Provider Unavail able Social History Tobacco Use Types Packs/Day Years Used Date Smoking Tobacco: Never Assessed Education Answer Date Recorded Are you interested in more education? Not on penelope e 09/03/2022 Are you concerned about learning? Not on file 09/03/2022 No 09/03/2022 No 09/03/2022 Digital Access Answer Date Recorded No 10/02/2022 No 10/02/2022 No 10/02/2022 Reliable internet access at home? Not on file 10/02/2022 Device with a working camera? Not on file Sex and Gender Information Value Date Recorded Sex Assigned at Not on file Legal Sex Male 10:35 PM EDT Gender Identity Not on file Sexual Orientation Not on file Plan of Treatment Health Maintenance Due Date Last Done Comments LIPID PANEL 1954 DEPRESSION SCREENING 1966 SMOKING Hx and SMOKELESS TOBACCO SCREENING 08/28/1967 HEPATITIS C SCREENING 1972 COLOGUARD 08/28/1999 COLONOSCOPY 08/28/1999 COLORECTAL CANCER SCREENING 08/28/1999 FIT TEST 08/28/1999 FOBT 08/28/1999 SIGMOIDOSCOPY 08/28/1999 VIRTUAL COLONOSCOPY 08/28/1999 ZOSTER VACCINES (3 of 3) 03/31/2020 02/04/2020, 10/08 Adult Td,Tdap Booster 08/21/2020 08/21/2010, 004 PNEUMOCOCCAL VACCINES (50+ years) (2 of 2 - PPSV23) 09/26/2020 09/27/2019 INFLUENZA VACCINE (#1) 2024 , 02/21/2018, 04/14/2016, Additional history exists COVID-19 VACCINE (2 - 2024- season) 2025 07/29/2020 RSV VACCINE (1 - 1-dose 75+ series) 2029 HEPATITIS A VACCINES Aged Out No long er eligible based on patient's age to complete this topic HIB VACCINES Aged Out No longer eligi ble based on patient's age to complete this topic MENINGOCOCCAL VACCINES (ACWY) Aged Out No longer eligible based on patient's age to complete this topic MENINGOCOCCAL VACCINES (B) Aged Out N o longer eligible based on patient's age to complete this topic Medical Devices Not on file Care Teams Catalyst Impregnator Relationship Specialty Start Date End Date Zacarias Cardenas MD PCP - General 05/12/17 Additional Source Comments The information contained in this document represents components of the legal health record. It is not the complete legal health record.[facility]
== END 2025-01-14 11:17 | disposition home or self-care (01) ==
LOC: HO.HGI 10:12
PROVIDERS: PCP Nurse Practitioner Family; Visit Provider Internal Medicine Gastroenterology
DX: Z01.818 Encounter for other preprocedural examination (principal); Z12.11 Encounter for screening for malignant neoplasm of colon; Z86.0100 Personal history of colon polyps, unspecified
CPT/HCPCS: 99213

== ENCOUNTER → 2025-01-14 10:11 | Outpatient (BNVA) | payer MEDICARE, SELFPAY | PROVIDERS: PCP Nurse Practitioner Family; Visit Provider Internal Medicine Gastroenterology | DX: Z01.818 Encounter for other preprocedural examination (principal) | CPT/HCPCS: 99212 ==

== ENCOUNTER 2025-03-20 10:23 | Outpatient (AMB) | payer MEDICARE, SELFPAY ==
[2025-03-20 10:31] VITALS: BP 126/76; PULSE 68; RESP 16; TEMP 36.8; O2SAT 98; BMI 26.2
--- NOTE | 2025-03-20 10:31 | MHC.PC.OV ---
Vital Signs 03/20/25 10:31 Height 5 ft 9.5 in Weight 180 lb BMI 26.2 BP 126/76 Blood Pressure Location Lt brachial Position Sitting Respiration 16 Pulse 68 Pulse Source Pulse Oximeter Temp 98.2 F Temp Source Oral Pulse Oximetry (%) 98 Oxygen Delivery Method Room Air Intake Visit Reasons: 6 months f/up Process Consultant Required: No Accompanied by: Self / Same As Patient Allergies amoxicillin Allergy (Mild, Verified 03/20/25 10:40) Abdominal Pain caffeine Allergy (Verified 03/20/25 10:40) Hives hornet venom Allergy (Verified 03/20/25 10:40) Anaphylaxis Penicillins Allergy (Verified 03/20/25 10:40) Agitated Tobacco use date assessed: 03/20/25 Fall risk assessment: No Falls in past year Last assessed Fall Risk: 03/20/25 Dental Screening Dental Screen Date: 03/20/25 Did you have a dental visit in the last 12 months?: Yes Did you have a dental problem in the last 6 months where you did not have access to dental care?: No Was dental information given to patient?: Patient has dentist HPI 6 months f/up HPI Details Chief Complaint The patient presents for a follow-up for dyslipidemia. History of Present Illness The patient is a 69-year-old male presenting for a follow-up visit for dyslipidemia. He denies any chest pain or shortness of breath and is doing quite well overall. He is under the regular care of a director clinical operations and a urologist. Social History - The patient is experiencing some emotional distress because his cat has been missing since the of this month. Health Maintenance - The patient sees a director clinical operations and a urologist on a regular basis. Review of Systems - Cardiovascular: Denies chest pain. - Respiratory: Denies shortness of breath -denies VILLEDA, blurred vision Physical Exam General: Cooperative, healthy appearing, comfortable, a little in distress, and well developed Orientation: Patient oriented x3 Limitations: No limitations Head: Normal to inspection Ears: Hearing grossly normal bilaterally Nose: Normal external nose present Face and sinus: Normal facial exam Eyes: Appearance normal, both eyes and all related structures Neck: Normal visual inspection and Yes full ROM Respiratory: Normal respiratory effort and able to speak in complete sentences. Clear to auscultation bilaterally Cardiovascular: Regular rate and rhythm. Normal S1 and S2 GI: Normal to inspection. Soft to palpation and nontender Skin: No rashes or lesions noted Neuro: Patient oriented x3 Extremities: Normal to inspection, no edema Results Plan 1. Dyslipidemia The patient will have fasting labs drawn in the near future to monitor his condition. Discussion Notes I discussed with the patient that he is doing quite well and denies chest pain or shortness of breath. I have ordered fasting labs for him to obtain in the near future for his dyslipidemia follow-up. He will continue to follow up with his director clinical operations and urologist regularly. Patient Instructions - Please go for fasting blood tests in the near future as we have ordered. - Continue your regular follow-up appointments with your director clinical operations and urologist. ON LICENSE OF [facility] Medical History (Updated 03/19/25 @ 15:06 by Kristin Lambert RN) Pure hypercholesterolemia Microscopic hematuria Raynauds disease Tubular adenoma On beta oliva at home History of prostate cancer GERD (gastroesophageal reflux disease) Hyperlipidemia CAD (coronary artery disease) Myocardial infarction Surgical History History of colonoscopy with polypectomy History of prostatectomy History of heart artery stent Social History Housing: House Are you a primary respiratory care faculty to a significant other at home: No Do you presently have visiting nurse or other home services: No Patient Tobacco Use Status: Former Tobacco user Tobacco use type: Cigarette Years Smoked: quit 1995 e-Cigarette/Vaping Use: Never Used Second Hand Smoke Exposure: No service: No Current occupational status: unemployed Cognitive needs: No Hearing needs: No Vision needs: No Questionnaire Thrive Questionnaire Date Thrive assessed: 05/30/24 I am a: Patient What is your living situation today?: I have a steady place to live Within the past 12 months, did the food you bought not last and you didn't have the money to get more?: Never true Within the past 12 months, did you worry whether your food would run out before you got money to buy more?: Never true Do you have trouble paying for medicines?: No Do you have trouble getting transportation to medical appointments?: No Do you have trouble paying your heating and electricity bill?: No Do you have trouble taking care of your child, family member or friend?: I choose not to answer this question Do you have trouble with day-to-day activities such as bathing, preparing meals, shopping, managing finances, etc.?: I choose not to answer this question Are you currently unemployed and looking for a job?: I choose not to answer this question Are you interested in more education?: I choose not to answer this question Please select the resources that you would like help with: None Currently or been in a relationship where the following occur: No concerns reported THRIVE Score: 0 ELSA-7 AMB Questionnaire ELSA-7 Date ELSA - 7 assessed: 09/04/24 Source: Developed by Drs. Mumtaz Lyman, Shaniqua Mireles, Luis Morales and colleagues, with an educational cindy from [employer]. Physical exam (Primary Care) Vital Signs: Last Vital Signs Temp 98.2 F 03/20/25 10:31 Pulse 68 03/20/25 10:31 Resp 16 03/20/25 10:31 BP 126/76 03/20/25 10:31 Pulse Ox 98 03/20/25 10:31 Oxygen Delivery Method Room Air 03/20/25 10:31 BMI result Body Mass Index 26.2 Tobacco/Smoking Status: Tobacco use Status Tobacco use date assessed 03/20/25 03/20/25 10:43 Patient Tobacco Use Status Former Tobacco user 03/20/25 10:32 Tobacco use type Cigarette 03/20/25 10:32 e-Cigarette/Vaping Use Never Used 03/20/25 10:32 Thrive Assessment: Date of Thrive Assessment Date Thrive assessed 05/30/24 03/20/25 10:32 Currently or been in a relationship where the following occur: No concerns reported Coding Level of Care Code Est Pt Level 3 (76167) Diagnoses Hyperlipidemia E78.5 Vitamin D deficiency E55.9 Assessment & Plan Assessment & Plan (1) Hyperlipidemia: Code(s): E78.5 - Hyperlipidemia, unspecified Category: Medical (2) Vitamin D deficiency: Code(s): E55.9 - Vitamin D deficiency, unspecified Category: Medical Plan . Orders: Orders TSH reflex Free T4 Today E78.5 - Hyperlipidemia, unspecified Vitamin D 25-OH Total Today E55.9 - Vitamin D deficiency, unspecified, E78.5 - Hyperlipidemia, unspecified Complete Blood Count Auto Diff Today E78.5 - Hyperlipidemia, unspecified Comprehensive [place]. Panel Fast Today E78.5 - Hyperlipidemia, unspecified UA CC w/rflx Micro + Cult Today E78.5 - Hyperlipidemia, unspecified Lipid Panel Today E78.5 - Hyperlipidemia, unspecified
--- OUTSIDE RECORDS SUMMARY | 2025-03-20 12:21 | XMS_ITS | Clinical Summary ---
Author Organization [facility] [employer] [facility] Address [address] [place] [address] Phone Care Team Providers Care Slitting Machine Feeder Name Role Phone Libby Garcias NP Primary Care Provider Allergies Active Allergy Reactions Criticality Noted Date Comments Amoxicillin 04/23/2016 Bee Pollens Anaphylaxis High 01/09/2016 Bee Venom Protein (Honey Bee) 05/29/2014 Other Reaction(s): REDNESS CARRIES EPIPEN flushing Caffeine Hives,Nausea Only High 01/09/2016 Medications CHOLECALCIFERO L, VITAMIN D3, ORAL Take 5,000 Int'l Units by mouth 1 (one) time each day. Active aspirin 81 mg tablet Take 81 mg by mouth. Active multivitamin with minerals (CENTRUM/CERTA VIT) 18-400 mg-mcg tablet tablet Take by mouth 1 (one) time each day. Active EPINEPHrine (EPIPEN) 0.3 mg/0.3 mL injection Inject 0.3 mL (0.3 mg total) as directed. 7 Active UNABLE TO FIND CoQ10 Activ e UNABLE TO FIND Glucosamine Chondroitin 1200 -1500 Active atorvastatin (LIPITOR) 80 mg tablet TAKE 1 TABLET BY MOUTH EVERY DAY 90 tablet 1 5 Active metoprolol succinate (TOPROL-XL) 25 mg 24 hr tablet Take 1 tablet (25 mg total) by mouth 1 (one) time each day. 90 tablet 2 5 Active metoprolol succinate (TOPROL-XL) 25 mg 24 hr tablet Take 1 tablet (25 mg total) by mouth 1 (one) time each day. 03/11/20 25 Discontin ued(Reord er) Active Problems Problem Noted Date Diagnosed Date [...] 12 lead Coronary artery disease invo lving [place] coronary artery of [place] heart without angina pectoris 12/24/2024 Overview (12/24/2024): [...] Encounters Date Type Department Care Team Description 03/11/2025 Telephone [facility] Cardiology [facility] [address] [place] [address] Libby Boyd MD 12/25/2024 1:30 PM EDT Office Visit [facility] Cardiology [facility] [address] [place] [address] Libby Boyd MD Pure hypercholesterolemia (Primary Dx); Coronary artery disease involving [place] coronary artery of [place] heart without angina pectoris from Last 3 Months Surgical History Surgery [...] and tubulovillous adenoma. OTHER SURGICAL HISTORY PROCEDURE: DC OPEN/PERQ PLACEMENT INTRAVASCULAR STENT INITIAL Medical History [...] Years Used Date Smoking Tobacco: Former Cigarettes 0 Q uit: 05/09/1995 Smokeless Tobacco: Never Alcohol [...] Health Maintenance Due Date Last Done Comments Colorectal Cancer Screening: Colonoscopy 1955 Zoster Vaccines (3 of 3) 03/31/2020 02/04/2020, 10/08 DTaP,Tdap,and Td Vaccines (3 - Td or Tdap) 08/21/2020 08/21/2010, 03/17/2004 Abdominal Aortic Aneurysm (AAA) Screen 06/07/2023 Cholesterol Screening (Lipid Panel) 06/07/2023 Falls Risk Assessment 06/07/2023 Hepatitis C [...] EDT Pure hypercholesterolemia Coronary artery disease involving [place] coronary artery of [place] heart without angina pectoris from Last 3 Months Results * ECG 12 lead (12/25/2024 1:43 PM EDT) Ventricular Rate ECG 70 BPM GEMUSE Atrial Rate 70 BPM GEMUSE P-R Interval 166 ms GEMUSE QRS Duration 82 ms GEMUSE Q-T Interval 382 ms GEMUSE QTc 412 ms GEMUSE P Wave [place] 65 degrees GEMUSE R [place] 60 degrees GEMUSE T [place] 20 degrees GEMUSE ECG Interpretation Sinus rhythm [...] Documents on File Type Date Recorded Patient Unload Associate Expl anation Health Care Decision (hx) 02/04/2017 AD VU DIRECTIVE Health Care Decision (hx) 02/04/2017 AD VU DIRECTIVE Health Care Decision (hx) 02/04/2017 AD VU DIRECTIVE Health Care Decision (hx) 02/04/2017 AD VU DIRECTIVE Care Teams Slitting Machine Feeder Relationship Specialty Start Date End Date Libby Garcias NP [address] [facility] [place] PCP - General 06/08/22
--- OUTSIDE RECORDS SUMMARY | 2025-03-20 12:21 | XMS_ITS | Clinical Summary ---
Author Organization [facility] Address [address] [address] Phone Care Team Providers Care Communications Equipment Installer Name Role Phone Zacarias Cardenas MD Primary [...] Medical Devices Not on file Care Teams Communications Equipment Installer Relationship Specialty Start Date End Date Zacarias Cardenas MD PCP - General 05/12/17 Additional Source Comments The information contained in this document represents components of the legal health record. It is not the complete legal health record.[facility]
== END 2025-03-20 11:19 | disposition home or self-care (01) ==
LOC: HO.HMCC 10:24
PROVIDERS: PCP Nurse Practitioner Family; Visit Provider Nurse Practitioner Family
DX: E78.5 Hyperlipidemia, unspecified (principal); E55.9 Vitamin D deficiency, unspecified

== ENCOUNTER 2025-03-20 10:23 | Outpatient (REF) | payer MEDICARE, SELFPAY ==
[2025-03-20 13:18] LABS: Appearance Urine Clear; Glucose Urine UA Negative (Negative); PH 7.0 (5.0-9.0); Specific Gravity - Urine 1.020 (1.005-1.025)
[2025-03-20 14:01] LABS: MANUAL DIFF FLAG NO
[2025-03-20 14:04] LABS: Hematocrit 45.8 % (42.0-52.0); Hemoglobin 14.6 g/dl (14.0-18.0); Imm Gran Abs Auto 0.03 X10*3/uL (0.00-0.03); Imm Gran Pct Auto 0.3 % (0.0-0.4); Lymphocytes Absolute Auto 3.0 X10*3/uL (1.2-4.9); Mean Corpuscular HGB Conc 31.9 g/dl (31.0-36.0); Mean Corpuscular Hemoglobin 28.3 pg (27.0-33.0); Mean Corpuscular Volume 88.9 fL (80.0-98.0); NRBC Abs Auto 0.000 X10*3/uL (0.0-0.012); NRBC Pct Auto 0.0 /100WBC (0.0-0.2); Platelet Count 237 X10*3/uL (160-400); Red Blood Count 5.15 X10*6/uL (4.60-5.80); White Blood Count 10.6 X10*3/uL (4.8-10.8)
[2025-03-20 14:33] LABS: Alanine Aminotransferase 34 U/L (0-40); Albumin Level 4.6 g/dL (3.5-5.0); Alkaline Phosphatase 63 U/L (39-117); Anion Gap 10 (12-20); Aspartate Amino Transferase 37 U/L (5-37); Blood Urea Nitrogen 11 mg/dL (9-16); Calcium 9.7 mg/dL (8.4-10.2); Carbon Dioxide 31 mmol/L (22-29); Chloride 104 mmol/L (96-108); Cholesterol 128 mg/dL (<200); Estimated Glomerular Filt Rate > 60; HDL Cholesterol 61 mg/dL (>40); Potassium 4.9 mmol/L (3.3-5.1); Sodium 140 mmol/L (135-145); Total Protein 7.2 g/dL (6.5-8.0); Triglycerides 75 mg/dL (<150)
== END 2025-03-20 10:24 | disposition home or self-care (01) ==
LOC: HO.HMGCLDS 10:23
PROVIDERS: PCP Nurse Practitioner Family; Visit Provider Nurse Practitioner Family
DX: E78.5 Hyperlipidemia, unspecified (principal); E55.9 Vitamin D deficiency, unspecified
CPT/HCPCS: 36415; 80053; 80061; 81003; 82306; 84443; 85025; 99212

== ENCOUNTER 2025-03-21 09:34 | Day surgery (SDC) | payer MEDICARE, SELFPAY ==
--- NOTE | 2025-03-18 13:39 | HO.ANESPROP2 ---
Documented by User: Misti Roldan NP 03/19/25 14:35 HPI - Anesthesia Eval Consult details Narrative: 69 yr old colonoscopy H/O CAD/MO: [place] in Apr 2016, inteferior wall myocardial infarction. Underwent successful stenting of right coronary artery occlusive lesion; 70% LAD stenosis was left alone. Follows PVC, last visit 12/25/24, EKG done then showed normal sinus rhythm, occasional premature ventricular complexes, otherwise normal. He was advised to increase exercise and follow up if any CP or SOB. PMFSH Active Problems Active Problems: All Active Problems Hyperlipidemia (Acute) Anemia (Acute) Vitamin D deficiency (Acute) CAD (coronary artery disease) (Acute) Rising PSA level (Acute) Leukocytosis (Acute) Screening PSA (prostate specific antigen) (Acute) Screening for colon cancer (Acute) Physical exam (Acute) Myocardial infarction (Acute) Past Medical History Medical History Pure hypercholesterolemia Microscopic hematuria Raynauds disease Tubular adenoma On beta oliva at home History of prostate cancer GERD (gastroesophageal reflux disease) Hyperlipidemia CAD (coronary artery disease) Myocardial infarction Surgical History Surgical History H/O knee surgery History of colonoscopy with polypectomy History of prostatectomy History of heart artery stent History of Problems with Anesthesia: No Social History Social History Housing: House Are you a primary memory care program resident to a significant other at home: No Do you presently have visiting nurse or other home services: No Patient Tobacco Use Status: Former Tobacco user Tobacco use type: Cigarette Years Smoked: quit 1995 e-Cigarette/Vaping Use: Never Used Second Hand Smoke Exposure: No Use of substances other than those prescribed or required for medical reasons: No Are you DNR?: No Advance Directives: Yes Advance Directives on File: Yes Advance Directives Date on File: 03/21/25 service: No Current occupational status: unemployed Cognitive needs: No Hearing needs: No Vision needs: No Meds Allergies Allergy/AdvReac Type Severity Reaction Status Date / Time amoxicillin Allergy Severe Anaphylaxis Verified 03/21/25 09:49 Penicillins Allergy Unknown Anaphylaxis Verified 03/21/25 09:49 caffeine Allergy Hives Verified 03/20/25 10:40 hornet venom Allergy Anaphylaxis Verified 03/20/25 10:40 Home Medications ?Medication ?Instructions ?Recorded ?Confirmed ?Last Taken ?Type aspirin 81 mg tablet,delayed 81 mg PO DAILY 08/25/20 03/19/25 09/30/21 History release atorvastatin 80 mg tablet 80 mg PO DAILY 08/25/20 03/19/25 Unknown History multivitamin 1 tab PO DAILY 08/25/20 03/19/25 Unknown History cholecalciferol (vitamin D3) 25 25 mcg PO DAILY 05/04/22 03/19/25 Unknown History mcg (1,000 unit) capsule glucosamine HCl 1,500 mg tablet 1,500 mg PO DAILY 11/14/23 03/19/25 Unknown History metoprolol succinate 25 mg 25 mg PO DAILY 05/30/24 03/19/25 03/21/25 History tablet,extended release 24 hr Exam Narrative Narrative: EKG 12/2024 Sinus rhythm with occasional Premature ventricular complexes Otherwise normal ECG When compared with ECG of 31-JAN-2017 06:25, Premature ventricular complexes are now Present Confirmed by MD HUSTON JOHN ([id number]) on 12/25/2024 2:09:34 PM Nuclear Stress Test 2022 IMPRESSION: Normal. Normal Exercise stress test with nuclear imaging. The patient had no chest pain and no EKG changes suggestive ischemia. Nuclear imaging revealed no areas of ischemia or infarction after attenuation correction was applied. Motion artifact was noted TID was normal at 0.73. Moderate calcification is noted in the LAD, circumflex and RCA Gated SPECT imaging was performed and revealed a normal LV function and thickening with an LVEF of 68% % Assessment and Plan Final Anesthetic Review History of Problems with Anesthesia: No Documented by User: Reyes Morocho MD 03/21/25 11:09 [facility] Past Medical History Medical History Pure hypercholesterolemia Microscopic hematuria Raynauds disease Tubular adenoma On beta oliva at home History of prostate cancer GERD (gastroesophageal reflux disease) Hyperlipidemia CAD (coronary artery disease) Myocardial infarction Functional capacity: independent ambulation Family History Family history of problems with anesthesia: No Surgical History Surgical History H/O knee surgery History of colonoscopy with polypectomy History of prostatectomy History of heart artery stent Social History Social History Housing: House Are you a primary memory care program resident to a significant other at home: No Do you presently have visiting nurse or other home services: No Patient Tobacco Use Status: Former Tobacco user Tobacco use type: Cigarette Years Smoked: quit 1995 e-Cigarette/Vaping Use: Never Used Second Hand Smoke Exposure: No Use of substances other than those prescribed or required for medical reasons: No Are you DNR?: No Advance Directives: Yes Advance Directives on File: Yes Advance Directives Date on File: 03/21/25 service: No Current occupational status: unemployed Cognitive needs: No Hearing needs: No Vision needs: No Meds Allergies Allergy/AdvReac Type Severity Reaction Status Date / Time amoxicillin Allergy Severe Anaphylaxis Verified 03/21/25 09:49 Penicillins Allergy Unknown Anaphylaxis Verified 03/21/25 09:49 caffeine Allergy Hives Verified 03/20/25 10:40 hornet venom Allergy Anaphylaxis Verified 03/20/25 10:40 Home Medications ?Medication ?Instructions ?Recorded ?Confirmed ?Last Taken ?Type aspirin 81 mg tablet,delayed 81 mg PO DAILY 08/25/20 03/19/25 09/30/21 History release atorvastatin 80 mg tablet 80 mg PO DAILY 08/25/20 03/19/25 Unknown History multivitamin 1 tab PO DAILY 08/25/20 03/19/25 Unknown History cholecalciferol (vitamin D3) 25 25 mcg PO DAILY 05/04/22 03/19/25 Unknown History mcg (1,000 unit) capsule glucosamine HCl 1,500 mg tablet 1,500 mg PO DAILY 11/14/23 03/19/25 Unknown History metoprolol succinate 25 mg 25 mg PO DAILY 05/30/24 03/19/25 03/21/25 History tablet,extended release 24 hr Exam Exam Date and Time: 03/21/25 Airway Mallampati Class: II TM Dist: >3cm Neck ROM: Limited Loose/Missing/Broken Teeth: No Heart: rrr Lungs: cta Other: normal Assessment and Plan Assessment Anesthesia Assessment: Anesthesia Plan Discussed and Chart Reviewed Final Anesthetic Review Family History of Problems with Anesthesia: No NPO: Yes ASA Class: II Final Preanesthetic Review: No Changes in Pt Med Stat, Meds/Allgs Chart Reviewed, Consent Obtained/Reviewed and Anes Risks/Benef Reviewed Patient Risk: Low Procedure Risk: Low Anesthetic Plan Anesthetic Plan: MAC: Disposition: Standard PACU
--- OUTSIDE RECORDS SUMMARY | 2025-03-18 15:13 | XMS_ITS | Clinical Summary ---
Author Organization [facility] Address [address] [address] Phone Care Team Providers Care Community Music Therapist Name Role Phone Zacarias Cardenas MD Primary [...] VACCINES (50+ years) (2 of 2 - PCV20 or PCV21) 09/26/2020 09/27/2019 INFLUENZA VACCINE (#1) 2024 0, 02/21/2018, 04/14/2016, Additional history exists COVID-19 VACCINE (2 - 2024- season) 2025 07/29/2020 RSV VACCINE (1 - 1-dose 75+ series) 2029 HEPATITIS A VACCINES Aged Out No long er eligible based on patient's age to complete this topic HIB VACCINES Aged Out No longer eligi ble based on patient's age to complete this topic IPV VACCINES Aged Out No longer eligi ble based on patient's age to complete this topic MENINGOCOCCAL VACCINES (ACWY) Aged Out No longer eligible based on patient's age to complete this topic MENINGOCOCCAL VACCINES (B) Aged Out N o longer eligible based on patient's age to complete this topic Medical Devices Not on file Care Teams Community Music Therapist Relationship Specialty Start Date End Date Zacarias Cardenas MD PCP - General 05/12/17 Additional Source Comments The information contained in this document represents components of the legal health record. It is not the complete legal health record.[facility]
[2025-03-19 15:05] VITALS: BMI 25.7
[2025-03-21 09:51] VITALS: BMI 25.4
[2025-03-21 10:08] VITALS: BP 124/73; PULSE 84; RESP 16; TEMP 36.6; O2SAT 99
[2025-03-21] MEDS: Lactated Ringers 1,000 ML 100 ML IVCONT (10:16)
--- NOTE | 2025-03-21 11:15 | MHC.SHP ---
Pre-Procedural Eval Section A - 24 Hr Update-Section A only Date of Service: 03/21/25 Section B - Complete if H&P > 30 days Chief Complaint: screening Relevant Family History (Specify if Yes): No Relevant Social History: None Present Medications: see Short Stay Collaborative assessment Medical History: Significant History ( Pure hypercholesterolemia Microscopic hematuria Raynauds disease Tubular adenoma On beta oliva at home History of prostate cancer GERD (gastroesophageal reflux disease) Hyperlipidemia CAD (coronary artery disease) Myocardial infarction) History of Previous Operations: Relevant previous surgery/procedure and date(s) ( History of colonoscopy with polypectomy History of prostatectomy History of heart artery stent) Allergies: Allergies Allergy/AdvReac Type Severity Reaction Status Date / Time amoxicillin Allergy Severe Anaphylaxis Verified 03/21/25 09:49 Penicillins Allergy Unknown Anaphylaxis Verified 03/21/25 09:49 caffeine Allergy Hives Verified 03/20/25 10:40 hornet venom Allergy Anaphylaxis Verified 03/20/25 10:40 Review of Systems Sugical H&P ROS: Negative: Constitution, Cardiovascular, Respiratory, Neurological, Psychiatric, Hem-Onc, Allergic/Immunologic, Gastrointestinal, Genitourinary, Musculoskeletal, Integumentary, Endocrine and Eyes/Ears/Nose/Throat Exam Surgical H&P Exam: Normal: HEENT, Normal: Heart, Normal: Lungs, Normal: Extremities, Normal: Abdomen, Normal: Skin and Normal: Neurological Plan Diagnosis/Plan: Unchanged I have reviewed the history and physical and performed a pertinent physical examination on my patient. No changes have occurred unless specified. Time Spent With Patient Time: Total time managing care of this patient today ____ minutes.
--- NOTE | 2025-03-21 11:56 | HO.OPN-COLON ---
Colonoscopy Operative Note Operative Note Date of Service: 03/21/25 Narrative: Operative Information Procedure Description: Colonoscopy Indication: hx oc olon polyps Anesthesia: MAC COLONOSCOPY Instrument: Olympus variable stiffness pediatric scope 190L Colonoscopy Monitoring: Vital signs and clinical assessment, continuous EKG monitoring, Pulse oximetry, Carbon Dioxide monitoring and blood pressure monitoring were done throughout the procedure. Colon withdrawal time was 17 minutes. Procedure: The patient was placed in the left lateral decubitis position and pre-procedure medications were administered. After a digital rectal examination of the ano-rectum, the video colonoscope was inserted into the rectum and advanced through the colon to the cecum/TI. The colonoscope was slowly withdrawn in a retrograde panoramic fashion and the colon mucosa was carefully examined including a retroflexed view of the rectum. Findings and interventions are described below. Procedure Difficulty: moderate Findings: Terminal Ileum-normal Cecum: x 1 sessile polyps 3-4 mm removed with cold forceps right sided retroflexion- normal Ascending Colon: moderate diverticulosis, x 2 sessile polyps 4-6 mm removed with cold snare Transverse Colon -normal Descending Colon:normal Sigmoid Colon: severe diverticulosis with mucosal hypertrophy and luminal narrowing Rectum: Retroflexion with medium sized internal hemorrhoids seen, grade I, 10 mm sessile polyp removed with cold snare Anorectum - normal Intervention: cold snare, cold forceps Colon preparation: [place] Bowel Preparation Scale Right colon; 2 Transverse colon: 2 Left colon; 2 (0 = Unprepared colon segment with mucosa not seen due to solid stool that cannot be cleared. 1 = Portion of mucosa of the colon segment seen, but other areas of the colon segment not well seen due to staining, residual stool and/or opaque liquid. 2 = Minor amount of residual staining, small fragments of stool and/or opaque liquid, but mucosa of colon segment seen well. 3 = Entire mucosa of colon segment seen well with no residual staining, small fragments of stool or opaque liquid) Impression and Post Procedure Diagnosis: diverticulosis colon polyps x 4 internal hemorrhoids Plan: High fiber diet leaflet Avoid straining at stool, epsom salts and sitz bath, anusol supps or cream Repeat Colonoscopy in 2-3 years or earlier if clinically indicated Above findings were reviewed with the patient and relevant handouts were provided if indicated.
[2025-03-21 12:02] VITALS: BP 110/55; PULSE 68; RESP 16; TEMP 36.1; O2SAT 97
[2025-03-21 12:15] VITALS: BP 108/66; PULSE 68; RESP 16; TEMP 36.1; O2SAT 95
== END 2025-03-21 12:49 | disposition home or self-care (01) ==
PROVIDERS: PCP Nurse Practitioner Family; Visit Provider Internal Medicine Gastroenterology
PROC: 0DJD8ZZ Inspection of Lower Intestinal Tract, Via Natural or Artificial Opening Endoscopic (ICD-10-PCS; CPT 45378; principal; 2025-03-21 13:20)
DX: Z12.11 Encounter for screening for malignant neoplasm of colon (principal); Z86.0101 Personal history of adenomatous and serrated colon polyps; D12.0 Benign neoplasm of cecum; D12.2 Benign neoplasm of ascending colon; D12.8 Benign neoplasm of rectum; K57.30 Diverticulosis of large intestine without perforation or abscess without bleeding; K64.0 First degree hemorrhoids; K21.9 Gastro-esophageal reflux disease without esophagitis; R31.29 Other microscopic hematuria; I25.10 Atherosclerotic heart disease of native coronary artery without angina pectoris; Z95.5 Presence of coronary angioplasty implant and graft; I25.2 Old myocardial infarction; E78.00 Pure hypercholesterolemia, unspecified; I73.00 Raynaud's syndrome without gangrene; Z85.46 Personal history of malignant neoplasm of prostate; Z79.82 Long term (current) use of aspirin; Z79.899 Other long term (current) drug therapy; Z88.0 Allergy status to penicillin; Z88.1 Allergy status to other antibiotic agents; Z87.891 Personal history of nicotine dependence; Z56.0 Unemployment, unspecified
CPT/HCPCS: 45385; 45380; 88305; J2003; J2704; J3010

== ENCOUNTER → 2025-03-21 09:34 | Outpatient (BNV) | payer MEDICARE, SELFPAY | PROVIDERS: PCP Nurse Practitioner Family; Visit Provider Internal Medicine Gastroenterology | DX: Z12.11 Encounter for screening for malignant neoplasm of colon (principal); D12.0 Benign neoplasm of cecum; K57.90 Diverticulosis of intestine, part unspecified, without perforation or abscess without bleeding; K64.0 First degree hemorrhoids; D12.2 Benign neoplasm of ascending colon; D12.8 Benign neoplasm of rectum | CPT/HCPCS: 45380; 45385 ==